=== PATIENT | female | born 1960 | race Caucasian/White ===

== ENCOUNTER 2022-04-24 23:47 | Inpatient (IN) | payer SELFPAY ==
--- NOTE | 2022-04-24 23:48 | XRR_ITS ---
PROCEDURE INFORMATION: Exam: XR Left Hip Exam date and time: 04/25/2022 12:09 AM Age: 61 years old Clinical indication: Injury or trauma; Fall; Blunt trauma (contusions or hematomas); Left; Hip; Additional info: Fall with left hip pain TECHNIQUE: Imaging protocol: Radiologic exam of the Left hip. Views: 2 or 3 views hip with pelvis when performed. COMPARISON: No relevant prior studies available. FINDINGS: Bones/joints: There is an acute comminuted intertrochanteric fracture of the proximal left femur. Soft tissues: Unremarkable. XR/XR hip LT 2-3V wo/w pel* [id number] IMPRESSION: Acute comminuted intertrochanteric fracture of the proximal left femur.
[2022-04-25] VITALS (28 sets, daily range): BP systolic 90–138; BP diastolic 50–80; PULSE 80–108; RESP 14–20; TEMP 36.3–37.3; O2SAT 90–100
--- NOTE | 2022-04-25 | SCC_ITS ---
Procedure done: Left intertrochanteric femur fracture cephalomedullary nail 155 seconds of fluoroscopic guidance, for a cumulative dose of 16.1 mGy, was provided to Dr. Menchaca by the radiology department. C-arm images of the LEFT hip were saved for the patient's permanent record. [facility]ENTER[facility]ern[facility]
--- NOTE | 2022-04-25 00:19 | CTR_ITS ---
PROCEDURE INFORMATION: Exam: CT Left Lower Extremity Without Contrast, Hip Exam date and time: 04/25/2022 12:46 AM Age: 61 years old Clinical indication: Injury or trauma; Fall; Blunt trauma; Hip; Left; Additional info: Fall left hip fracture TECHNIQUE: Imaging protocol: CT of the Left lower extremity without contrast was performed. Exam focused on the hip. Radiation optimization: All CT scans at this facility use at least one of these dose optimization techniques: automated exposure control; mA and/or kV adjustment per patient size (includes targeted exams where dose is matched to clinical indication); or iterative reconstruction. COMPARISON: CR (PELVIS, ) 04/25/2022 12:09 AM RADIATION DOSE METRICS: Total DLP (mGy-cm): 267.28 FINDINGS: Bones/joints: There is an acute comminuted intertrochanteric fracture of the proximal left femur. There is a moderate coxa vera deformity and anterior angulation present. Soft tissues: Normal. CT/CT hip LT wo con* [id number] IMPRESSION: Acute comminuted intertrochanteric fracture of the proximal left femur.
--- NOTE | 2022-04-25 00:19 | XRR_ITS ---
PROCEDURE INFORMATION: Exam: XR Left Femur Exam date and time: 04/25/2022 12:21 AM Age: 61 years old Clinical indication: Injury or trauma; Fall; Blunt trauma; Hip; Left; Additional info: Fall hip pain TECHNIQUE: Imaging protocol: Radiologic exam of the Left femur. Views: 2 views. COMPARISON: CR (PELVIS, ) 04/25/2022 12:09 AM FINDINGS: Bones/joints: There is an acute comminuted intertrochanteric fracture of the proximal left femur. Soft tissues: Unremarkable. XR/XR femur LT min 2V* [id number] IMPRESSION: Acute comminuted intertrochanteric fracture of the proximal left femur.
--- NOTE | 2022-04-25 00:19 | XRR_ITS ---
PROCEDURE INFORMATION: Exam: XR Left Knee Exam date and time: 04/25/2022 12:28 AM Age: 61 years old Clinical indication: Injury or trauma; Fall; Blunt trauma; Knee; Left; Additional info: Fall left lower extremity pain TECHNIQUE: Imaging protocol: Radiologic exam of the Left knee. Views: 3 views. COMPARISON: CR (LOW EXM, ) 04/25/2022 12:21 AM FINDINGS: Bones/joints: There is a moderate loss of joint space seen in the 3 compartments of the left knee compatible with moderate osteoarthritic changes. There are no acute osseous findings. Soft tissues: Normal. XR/XR knee LT 3V* [id number] IMPRESSION: There are no acute osseous findings.
--- NOTE | 2022-04-25 00:20 | XRR_ITS ---
PROCEDURE INFORMATION: Exam: XR Chest Exam date and time: 04/25/2022 12:32 AM Age: 61 years old Clinical indication: Injury or trauma; Fall; Blunt trauma (contusions or hematomas); Additional info: Hip fracture fall TECHNIQUE: Imaging protocol: Radiologic exam of the chest. Views: 1 view. COMPARISON: CT chest w con* [id number] 07/16/2018 11:05 AM FINDINGS: Lungs: There is a background of emphysema, bronchiectasis and pulmonary fibrosis. A partially calcified granuloma seen in the left mid hemithorax. There is asymmetric apical pleural thickening seen on the left. This finding is similar to that seen 07/16/2018. Pleural spaces: See Lungs finding. Heart/Mediastinum: Unremarkable. No cardiomegaly. Bones/joints: Unremarkable. XR/XR chest 1V portable [id number] IMPRESSION: 1. There is a background of emphysema, bronchiectasis and pulmonary fibrosis. 2. There is asymmetric apical pleural thickening seen on the left appearing stable compared to 07/16/2018. 3. Calcified granuloma seen in the left mid hemithorax.
--- NOTE | 2022-04-25 00:38 | ECG_ITS ---
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 Measurements Intervals [place] Rate: 101 P: 88 MD: 155 QRS: 72 QRSD: 82 T: 76 QT: 356 QTc: 463 Interpretive Statements SINUS TACHYCARDIA SEPTAL MYOCARDIAL INFARCTION , PROBABLY OLD [40+ ms Q WAVE IN V1/V2] Compared to ECG 07/18/2018 06:00:37 Myocardial infarct finding now present Sinus rhythm no longer present Electronically Signed On 04-25-2022 10:17:12 CDT by Mitch Olmedo M.D. [email or web address]
[2022-04-25 00:49] LABS: Basophils # 0.1 10^3/uL (0.0-0.1); Eosinophils # 0.3 10^3/uL (0.0-0.8); Eosinophils % 3.3 %; Hematocrit 46.3 % (37.0-47.0); Lymphocytes # 3.1 10^3/uL (0.8-4.8); Lymphocytes % 31.4 %; Mean Corpuscular HGB Conc 34.6 g/dL (30.0-36.0); Mean Corpuscular Hemoglobin 32.3 pg (28.0-34.0); Mean Corpuscular Volume 93.3 fl (81-99); Mean Platelet Volume 11.3 fL (7.4-10.4); Monocytes # 0.9 10^3/uL (0.2-0.9); Monocytes % 9.1 %; Neutrophils # 5.32 10^3/uL (1.8-7.7); Neutrophils % 54.7 %; Nucleated Red Blood Cells % 0 %; Platelet Count 243 10^3/cmm (130-400); Red Blood Count 4.96 10^6/uL (4.1-5.3); Red Cell Distribution Width 13.2 % (12.1-15.1); White Blood Count 9.7 10^3/uL (4.0-10.0)
[2022-04-25 00:55] LABS: INR 0.95 (0.8-1.2)
[2022-04-25 00:56] LABS: Partial Thromboplastin Time 27.5 SECONDS (23.9-36.7)
[2022-04-25 01:04] LABS: Alanine Aminotransferase 12 U/L (0-33); Albumin Level 4.1 g/dL (3.5-5.2); Alcohol Level 68 mg/dL (0-10); Alkaline Phosphatase 84 U/L (35-105); Anion Gap 16.3 (5-19); Aspartate Amino Transferase 17 U/L (0-32); Blood Urea Nitrogen 6 mg/dL (8-23); Calcium 9.1 mg/dL (8.5-10.5); Carbon Dioxide 28 mmol/L (22-29); Chloride 94 mmol/L (98-107); Globulin 2.8 g/dL (1.3-4.6); Glomerular Filtration Rate 125.4 mL/min (90-130); Glucose 107 mg/dL (65-115); Osmolality Calculated 278 mOsm/kg (285-295); Potassium 3.3 mmol/L (3.5-5.1); Sodium 135 mmol/L (136-145); Total Bilirubin 0.2 mg/dL (0.15-1.2); Total Protein 6.9 g/dL (6.6-8.7)
[2022-04-25] MEDS: sodium chloride 0.9% 1,000 ML 999 ML IV (01:04)
[2022-04-25] MEDS: morphine 4 mg/mL SDV 1 mL IVP (01:05)
[2022-04-25] MEDS: ondansetron 2 mg/ML SDV 2 mL 4 MG IVP ×2 (01:05→21:41)
[2022-04-25] MEDS: fentaNYL 50 mcg/mL INJ 2mL IVP (01:50)
--- NOTE | 2022-04-25 02:07 | ED_ITS ---
HPI - Fall General: Chief Complaint: Fall Stated Complaint: FALL/LEFT HIP PAIN Time Seen by Provider: 04/24/22 23:58 Source: patient and family History of Present Illness: 61-year-old female with a history of coronary disease. She is a smoker. She fell at home, and has left hip pain. She did not hit her head. There is deformity of the left lower extremity. She presents by EMS. complaint: fall Onset (ago): minute(s) Fall from: standing Fall witnessed: yes, by family Place fall occurred: home Loss of consciousness: None Prolonged down time: no Symptoms prior to fall: none Context: tripped/slipped Location of injury - extremities: Left: thigh Quality: aching Associated symptoms-after fall: Reports difficulty walking; Denies abdominal pain, chest pain, confusion, headache(s), lightheadedness or short of breath Review of Systems Const: Denies: fever(s) Eyes: Denies: change in vision Card: Denies: chest pain or lightheadedness Resp: Denies: dyspnea, productive cough or non-productive cough GI: Denies: abdominal pain : Denies: flank pain Musc: Denies: back pain Neuro: Reports: difficulty walking; Denies: headache(s) or confusion PFSH ED PFSH: Medical History CAD (coronary artery disease) Surgical History Hx of appendectomy Family History Other Cancer Social History (Updated 04/25/22 @ 01:28 by Kameron Woo MD) Smoking and tobacco status: smoker, details unknown Physical Exam Const: GENERAL APPEARANCE: cooperative and frail appearing; not ill appearing HENMT: COMMON NORMALS: normocephalic, atraumatic and Normal external nose present HEAD & SCALP: normocephalic and atraumatic FACE & SINUS: normal facial exam and face symmetric NOSE: Normal external nose present Eye: COMMON NORMALS: Equal, round and reactive pupils present and EOMs intact bilaterally PUPIL: Yes Equal, round and reactive pupils present Neck/C-Spine: GENERAL: Yes trachea midline CERVICAL SPINE: Yes cervical ROM normal and No Cervical spine tenderness Chest: CHEST: Yes Symmetrical chest wall rise Resp: COMMON NORMALS: normal respiratory effort, No use of accessory muscles and clear to auscultation bilaterally AUSCULTATION: clear to auscultation bilaterally Cardio: COMMON NORMALS: regular rhythm RATE: tachycardic RHYTHM: regular rhythm GI: COMMON NORMALS: Normal to inspection, nondistended, normoactive bowel sounds present and Soft to palpation PALPATION: Yes Soft to palpation Extremity: NARRATIVE EXTREMITY EXAM: Examination left lower extremity reveals shortening and external rotation. There is tenderness over the left hip Neuro: MARYLU COMA SCALE: document GCS findings Marylu coma scale eye opening: Spontaneous [place] coma scale verbal response: Orientated Marylu coma scale motor response: Obey commands [place] coma scale total score: 15 Psych: COMMON NORMALS: mental status grossly normal and cooperative Skin: COMMON NORMALS: no wounds Course Vital Signs: Vital signs: Vital Signs Temperature 97.5 F L 04/25/22 00:03 Pulse Rate 80 04/25/22 01:07 Respiratory Rate 18 04/25/22 01:50 Blood Pressure 124/70 04/25/22 01:07 Pulse Oximetry 94 04/25/22 01:07 Oxygen Delivery Me thod 04/25/22 01:07 Oxygen Flow Rate 3 04/25/22 01:07 MDM - Fall Medical Decision Making Patient has significant shortening and rotation of the left hip. There is an intertrochanteric fracture. X-rays of the knee are negative. No pelvic fracture. Hemoglobin is 16. Potassium is 3.3. Chest x-ray shows calcified granuloma in the left mid hemithorax with emphysema changes her alcohol level is 68. She is awake alert and talking. She is oriented. She will be admitted. Orthopedics will consult. Lab Data : 04/24/22 23:56 04/24/22 23:56 Radiology Impressions Hip/Pelvis X-Ray 04/24/22 23:48 IMPRESSION: Acute comminuted intertrochanteric fracture of the proximal left femur. Femur X-Ray 04/25/22 00:19 IMPRESSION: Acute comminuted intertrochanteric fracture of the proximal left femur. Hip CT 04/25/22 00:19 IMPRESSION: Acute comminuted intertrochanteric fracture of the proximal left femur. Knee X-Ray 04/25/22 00:19 IMPRESSION: There are no acute osseous findings. Chest X-Ray 04/25/22 00:20 IMPRESSION: 1. There is a background of emphysema, bronchiectasis and pulmonary fibrosis. 2. There is asymmetric apical pleural thickening seen on the left appearing stable compared to 07/16/2018. 3. Calcified granuloma seen in the left mid hemithorax. Laboratory Results WBC 9.7 10^3/uL (4.0-10.0) 04/24/22 23:56 RBC 4.96 10^6/uL (4.1-5.3) 04/24/22 23:56 Hgb 16.0 g/dL (11.5-15.3) H 04/24/22 23:56 Hct 46.3 % (37.0-47.0) 04/24/22 23:56 MCV 93.3 fl (81-99) 04/24/22 23:56 MCH 32.3 pg (28.0-34.0) 04/24/22 23:56 MCHC 34.6 g/dL (30.0-36.0) 04/24/22 23:56 RDW 13.2 % (12.1-15.1) 04/24/22 23:56 Plt Count 243 10^3/cmm (130-400) 04/24/22 23:56 MPV 11.3 fL (7.4-10.4) H 04/24/22 23:56 Neut % (Auto) 54.7 % 04/24/22 23:56 Lymph % (Auto) 31.4 % 04/24/22 23:56 [place] % (Auto) 9.1 % 04/24/22 23:56 Eos % (Auto) 3.3 % 04/24/22 23:56 Baso % (Auto) 1.0 % 04/24/22 23:56 Neut # (Auto) 5.32 10^3/uL (1.8-7.7) 04/24/22 23:56 Lymph # (Auto) 3.1 10^3/uL (0.8-4.8) 04/24/22 23:56 [place] # (Auto) 0.9 10^3/uL (0.2-0.9) 04/24/22 23:56 Eos # (Auto) 0.3 10^3/uL (0.0-0.8) 04/24/22 23:56 Baso # (Auto) 0.1 10^3/uL (0.0-0.1) 04/24/22 23:56 Nucleated RBC % (auto) 0 % 04/24/22 23:56 Nucleated RBCs # 0.0 /100WBC 04/24/22 23:56 PT 13.00 SECONDS (12.1-14.9) 04/24/22 23:56 INR 0.95 (0.8-1.2) 04/24/22 23:56 APTT 27.5 SECONDS (23.9-36.7) 04/24/22 23:56 Sodium 135 mmol/L (136-145) L 04/24/22 23:56 Potassium 3.3 mmol/L (3.5-5.1) L 04/24/22 23:56 Chloride 94 mmol/L (98-107) L 04/24/22 23:56 Carbon Dioxide 28 mmol/L (22-29) 04/24/22 23:56 Anion Gap 16.3 (5-19) 04/24/22 23:56 BUN 6 mg/dL (8-23) L 04/24/22 23:56 Creatinine 0.5 mg/dL (0.5-0.9) 04/24/22 23:56 GFR Calculation 125.4 mL/min (90-130) 04/24/22 23:56 Glucose 107 mg/dL (65-115) 04/24/22 23:56 Calculated Osmolality 278 mOsm/kg (285-295) L 04/24/22 23:56 Calcium 9.1 mg/dL (8.5-10.5) 04/24/22 23:56 Total Bilirubin 0.2 mg/dL (0.15-1.2) 04/24/22 23:56 AST 17 U/L (0-32) 04/24/22 23:56 ALT 12 U/L (0-33) 04/24/22 23:56 Alkaline Phosphatase 84 U/L (35-105) 04/24/22 23:56 Total Protein 6.9 g/dL (6.6-8.7) 04/24/22 23:56 Albumin 4.1 g/dL (3.5-5.2) 04/24/22 23:56 Globulin 2.8 g/dL (1.3-4.6) 04/24/22 23:56 Ethyl Alcohol 68 mg/dL (0-10) H 04/24/22 23:56 Discharge Plan Discharge Patient Disposition: Admitted As Inpatient Clinical Impression: Closed fracture of left hip Condition: Stable Referrals: Amber Allen FNP [Primary Care Provider] - Coding Level of Care Code ED Senior Compliance Analyst for [facility]
[2022-04-25 02:13] LABS: Add Urine Microscopic? NO; Charge for UA Resulting for Rev
--- NOTE | 2022-04-25 02:28 | P.HP_ITS ---
Providers/Chief Complaint Admitting Physician: Kameron Woo Primary Care Provider: Amber Allen Chief Complaint: FALL/LEFT HIP PAIN History of Present Illness Pleasant 61-year-old lady with history of CAD, prior stenting, smoking addiction was walking her dog who suddenly darted to t[place] after something causing her to lose her footing falling to the ground. Subsequently with left hip pain. In ER noted acute comminuted intertrochanteric fracture of proximal left femur. She states she smokes about a pack a day and that she knows she needs to quit. She drinks about 1-2 drinks per day. She otherwise has been at baseline state of health. She takes aspirin. She denies having any chest pain or pressure recently. In ER she started on 3 L nasal cannula oxygen, although appears to be doing well on about 1 L as well maintaining saturations in low 90s. Reports not previously needing oxygen supplementation. Has not been formally diagnosed with any lung condition. Review of Systems Const: Denies: fever(s), chills, body aches or malaise Eyes: Denies: change in vision, eye discomfort or eye redness ENMT: Denies: throat pain, oral sores or ear or mastoid pain Card: Denies: chest pain, edema, pre-syncope or dyspnea on exertion Resp: Denies: dyspnea, productive cough, change in phlegm color or hemoptysis GI: Denies: abdominal pain, nausea, vomiting, diarrhea, constipation, hematochezia or melena : Denies: flank pain, urinary frequency or hematuria Musc: Reports: joint pain; Denies: back pain, joint swelling or joint redness Skin/Breast: Denies: rash or new lesions Neuro: Denies: headache(s), numbness in extremities, weakness in extremities, dizziness, confusion or seizure-like activity Endo: Denies: polyuria or polydipsia Jef/Lymph: Denies: easy bleeding or tender lymph nodes All/Imm: Denies: urticaria or tongue swelling Medications/Allergies Allergies Allergy/AdvReac Type Severity Reaction Status Date / Time No Known Allergies Allergy Verified 04/25/22 00:10 PFSH Acute PFSH: Medical History CAD (coronary artery disease) Surgical History Hx of appendectomy Stented coronary artery Family History Other Cancer Social History Smoking and tobacco status: current every day smoker cigarettes Packs smoked per day: 1 Alcohol intake: current Alcohol intake frequency: 0-2 Drinks per Day Substance/Drug Use: never Lives independently: Yes Household members: spouse Marital status: Vitals/I&O/Wt Last Vital Signs Temp 97.5 F L 04/25/22 00:03 Pulse 105 H 04/25/22 02:20 Resp 15 04/25/22 02:20 BP 106/59 04/25/22 02:20 Pulse Ox 90 04/25/22 02:20 O2 Del Method 04/25/22 02:07 O2 Flow Rate 5 04/25/22 02:07 Weight last 48 hrs Weight 49.895 kg Physical Exam Const: COMMON NORMALS: patient oriented x3 and alert GENERAL APPEARANCE: cooperative ORIENTATION/CONSCIOUSNESS: Yes awake HENMT: COMMON NORMALS: oropharynx normal Neck/C-Spine: COMMON NORMALS: no JVD Resp: COMMON NORMALS: normal respiratory effort and clear to auscultation bilaterally AUSCULTATION: clear to auscultation bilaterally Cardio: COMMON NORMALS: no JVD, regular rhythm, S1 normal heart sound present, S2 normal heart sound present and No murmurs present (Cardio) RHYTHM: regular rhythm HEART SOUNDS: S1 normal heart sound present and S2 normal heart sound present GI: COMMON NORMALS: Normal to inspection, nondistended, normoactive bowel sounds present, Soft to palpation and non-tender PALPATION: Yes Soft to palpation Extremity: COMMON NORMALS: no joint enlargement and no pedal edema OTHER: Everted, shortened LLE Neuro: COMMON NORMALS: patient oriented x3 and moves all extremities SENSORIUM/ORIENTATION: Yes alert Skin: COMMON NORMALS: no rashes or lesions noted GENERAL SKIN EXAM: no rashes or lesions noted Urinary Catheter Management: Scott: Cath Placed During This Visit: yes Urinary Catheter Date of Insertion: 04/25/22 Urinary Catheter Time of Insertion: 02:06 Data : 04/24/22 23:56 04/24/22 23:56 A&P Assessment and plan (1) Closed comminuted fracture of left hip: After mechanical fall after lost her footing and fell being pulled by her dog. She would like to pursue surgical intervention to repair the fracture so that she can mobilize as soon as possible. Carries slightly higher cardiac risk due to history of CAD, stenting, current smoking, appears to also have some hypoxia, undiagnosed COPD likely with emphysema noted on chest x-ray. She is not aware of having previously been diagnosed with lung disease. With noted sinus tachycardia, possibly secondary to fracture, pain, although will assess D-dimer, consider assessment for PE. She otherwise has not had any chest pain or pressure. EKG obtained appears nonischemic. Monitor for any changes in symptoms. Collect UA. Otherwise to be assessed by orthopedics, keep NPO. SCDs, 1 dose of heparin VTE prophylaxis, hold further until after surgery. (2) Hypoxia: She denies history of lung disease diagnosis, however, noted to have emphysema on chest x-ray. Likely has undiagnosed COPD. Additionally noted sinus tachyca rdia. Will obtain D-dimer, if abnormal consider additional evaluation for possibility of PE, although otherwise should be less likely. After recovery would benefit from PFT. (3) Smoking addiction: Discussed smoking cessation with her for about 4 minutes. She benefit from quitting given history of CAD, and now appears to have undiagnosed lung disease. Encourage cessation. She knows she would benefit from quitting. Nicotine replacement. Plan EtOH intake: EtOH level 68 mg/dL. She states she has 1-2 beers daily. Denies any history of withdrawal. Monitor. Thiamine, folic acid, multivitamin. Mild hypokalemia: Replace CAD, history of NSTEMI, coronary stenting Noted symmetrical apical pleural thickening, appearing stable since 2019, follow-up outpatient. Calcified granuloma in the left mid hemithorax: Follow-up outpatient. Attestations Medical Necessity Statement*: Admission of over 2 midnights anticipated for as sessment when of left hip fracture in a lady with underlying CAD, also with undiagnosed lung disease with hypoxia, smoking, daily EtOH. Coding Level of Care Code Acute Rust Proofer for [facility] Diagnoses Closed comminuted fracture of left hip S72.092A Hypoxia R09.02 Smoking addiction F17.200
[2022-04-25 02:49] LABS: Urine Appearance Clear (CLEAR); Urine Color Yellow (Yellow); pH Urine 6 (5-7)
[2022-04-25 02:50] LABS: Bilirubin Urine Neg (Negative); Blood Urine Neg (Negative); Glucose Urine UA Norm (Normal); Ketones Urine Negative (Negative); Leukocyte Esterase Urine Negative (Negative); Nitrate Urine Negative (Negative); Protein Urine Neg (Negative); Urobilinogen Urine Neg (Negative)
[2022-04-25 03:02] LABS: D Dimer 1.68 ug/mIFEU (0-0.59)
--- NOTE | 2022-04-25 03:30 | CTR_ITS ---
PROCEDURE INFORMATION: Exam: CTA Chest With Contrast Exam date and time: 04/25/2022 9:56 AM Age: 61 years old Clinical indication: Abnormal findings; Other: Elevated ddimer; Prior surgery; Surgery type: Stents; Additional info: Hypoxia, sinus tach TECHNIQUE: Imaging protocol: Computed tomographic angiography of the chest with contrast. 3D rendering (Not supervised by radiologist): MIP and/or 3D reconstructed images were created by the technologist. Radiation optimization: All CT scans at this facility use at least one of these dose optimization techniques: automated exposure control; mA and/or kV adjustment per patient size (includes targeted exams where dose is matched to clinical indication); or iterative reconstruction. Contrast material: OMNI 350; Contrast volume: 58 ml; Contrast route: INTRAVENOUS (IV); COMPARISON: CT chest w con* [id number] 07/16/2018 11:05 AM RADIATION DOSE METRICS: Total DLP (mGy-cm): 155.35 FINDINGS: Pulmonary arteries: No central or segmental filling pulmonary artery filling defects are identified. Aorta: The aorta is normal in course and caliber. Lungs: Severe emphysematous disease. Peripheral calcified pulmonary scarring again noted. Peribronchial thickening noted. Bronchial filling defects in the right lower lobe noted. No significant airspace consolidation concerning for pneumonia. Resolution of multiple previously noted spiculated nodules. Pleural spaces: Prominent calcified scarring/pleural thickening in the left upper lobe, similar to prior exam in 2018. No pleural effusions. No pneumothorax. Heart: Coronary artery calcifications noted. Lymph nodes: Calcified left hilar lymph nodes identified. Adrenal glands: Possible left adrenal gland hypertrophy again noted but overall poorly visualized on this exam. Stomach and bowel: Dense ingested material noted within the partially visualized stomach. Bones/joints: Unremarkable. Soft tissues: Unremarkable. CT/CT angio chest PE protcl [id number] IMPRESSION: 1. No pulmonary embolism identified. 2. Significant emphysematous disease again noted with pulmonary scarring.
[2022-04-25] MEDS: morphine 4 mg/mL SDV 1 mL 2 MG IVP ×2 (05:54→21:38)
[2022-04-25] MEDS: nicotine 21 mg Patch 1 PATCH TRANSDERMA (06:14)
[2022-04-25] MEDS: heparin 5,000 unit/mL INJ 1 mL 5000 UNIT SUBCUT (06:15)
[2022-04-25] MEDS: potassium chloride ER 20 mEq Tablet PO (06:15)
[2022-04-25] MEDS: HYDROmorphone 1 mg/mL INJ 1 mL 0.2 MG IVP ×2 (07:54→09:48)
--- NOTE | 2022-04-25 07:56 | P.CONIM_ITS ---
Providers/Reason For Consult Consulting Physician/Specialty*: Nic Menchaca DO/orthopedic surgery Reason for Consult*: Left intertrochanteric femur fracture Requesting Physician: Dr. Araiza Attending Physician: Kameron Woo Primary Care Provider: Amber Allen History of Present Illness History of Present Illness Carola Reynoso is a 61 year old female sustained a ground-level fall while walking her dog. Patient is a community ambulator at baseline and does not utilize a walker. Denies any prior hip pain. Patient is a chronic smoker. Is not on nasal cannula O2 at home. She has a history of coronary artery disease and stenting. She takes an aspirin daily. She has been n.p.o. since last night. She denies any fevers or chills nausea or vomiting or chest pain. Patient was brought to the emergency department found to have a left intertrochanteric femur fracture and orthopedic surgery team was consulted and hospitalist team is admitted patient. Review of Systems General: Reports: 10 or more systems reviewed and unremarkable except in HPI and below Const: Denies: fever(s) or chills Card: Denies: chest pain Resp: Denies: dyspnea GI: Denies: abdominal pain, nausea or vomiting Musc: Reports: extremity pain and joint pain Neuro: Denies: numbness in extremities Medications/Allergies Allergies Allergy/AdvReac Type Severity Reaction Status Date / Time No Known Allergies Allergy Verified 04/25/22 00:10 Current Medications Generic Name Dose Route Start Last Admin Trade Name Freq PRN Reason Stop Dose Admin Morphine Sulfate 2 mg 04/25/22 04:51 04/25/22 05:54 Morphine 4 Mg/Ml Sdv 1 Ml IVP 2 mg Q4H PRN Administration SEVERE PAIN Nicotine 1 patch 04/25/22 04:51 04/25/22 06:14 Nicotine 21 Mg Patch TRANSDERMA 1 patch Q24H JEANNA Administration PFSH Acute 2 PFSH: Medical History (Updated 04/25/22 @ 08:23 by Nic Menchaca DO) CAD (coronary artery disease) Fracture, intertrochanteric, left femur Surgical History Hx of appendectomy Stented coronary artery Family History Other Cancer Social History Smoking and tobacco status: current every day smoker cigarettes Packs smoked per day: 1 Alcohol intake: current Alcohol intake frequency: 0-2 Drinks per Day Substance/Drug Use: never Lives independently: Yes Household members: spouse Marital status: Vitals/I&O/Wt Last Vital Signs Temp 98.2 F 04/25/22 07:27 Pulse 105 H 04/25/22 07:27 Resp 18 04/25/22 07:54 BP 118/71 04/25/22 07:27 Pulse Ox 91 04/25/22 07:54 O2 Del Method 04/25/22 07:27 O2 Flow Rate 5 04/25/22 07:27 Weight last 48 hrs Weight 110 lb Physical Exam Narrative: Orthopedic examination: Examination of patient's left lower extremity demonstrates shortened and externally rotated. Tenderness to palpation of the left hip. Positive logroll. Unable to perform Stinchfield secondary to pain and discomfort. Sensation int act to light touch distally to the left lower extremity at the SPN/DPN/tibial/saphenous/sural nerve distribution. Distal pulses are palpable. Patient is able to wiggle toes as well as plantarflex and dorsiflex ankle. No tenderness to palpation of the left knee foot or ankle. No pain with pelvic compression or signs of instability. No tenderness to palpation of the right hip knee ankle or foot. Distal pulses palpable able to wiggle toes as well as plantarflex and dorsiflex ankle. Negative logroll to the right leg. Examination of the bilateral upper extremity shoulders elbows wrists and hands show no tenderness to palpation or deformity and normal range of motion without pain or discomfort.. Const: COMMON NORMALS: no acute distress and patient oriented x3 HENMT: COMMON NORMALS: normocephalic and atraumatic HEAD & SCALP: normocephalic and atraumatic Resp: COMMON NORMALS: normal respiratory effort (She is requiring nasal cannula 5 L at this time but denies shortness of timoteo) Cardio: COMMON NORMALS: Peripheral pulses 2+ throughout PERIPHERAL PULSES: Peripheral pulses 2+ throughout Neuro: COMMON NORMALS: patient oriented x3 Urinary Catheter Management: Scott: Cath Placed During This Visit: yes Reason for Continuing Indwelling Catheter: Required Immobilization for Trauma or Surgery or Anesthesia Urinary Catheter Date of Insertion: 04/25/22 Urinary Catheter Time of Insertion: 02:06 Data : 04/24/22 23:56 04/24/22 23:56 Xray Ortho: My impression: Comminuted fracture of the left intertrochanteric femur with displacement. No extension into the subtrochanteric region. Pelvis hip femur and knee reviewed and show no other acute fracture dislocation. Radiologist's impression: IMPRESSION: Acute comminuted intertrochanteric fracture of the proximal left femur. CT scan showsIMPRESSION: Acute comminuted intertrochanteric fracture of the proximal left femur. A&P Assessment and plan (1) Fracture, intertrochanteric, left femur: (2) Smoking addiction: Plan N.p.o. Nonweightbearing left lower extremity Preoperative clearance and medical optimization per primary team?hospitalist Due to patient requiring 5 L nasal cannula spoke with hospitalist and they will order a CTA of the chest to rule out any PE prior to surgical intervention. If this is cleared patient per the hospitalist will be medically optimized for surgical intervention today Ice as needed for pain Pain control Hold a.m. anticoagulation Plan for OR today for left intertrochanteric femur fracture cephalomedullary nail Detail out the risk benefits complications alternatives of surgical and nonsurgical treatment options with patient. Her risks include but are not limited to make it better, make it worse, blood clot, heart attack, stroke, on the table, infection, malunion, nonunion, failed hardware. Understanding these risks she agrees to proceed with surgical intervention I do feel as though the benefits of early mobilization and pain control outweigh the risk with surgery. She understands and agrees to proceed with surgical intervention. All questions have been answered at this time. Obtain consent Coding Level of Care Code Acute Storeroom Attendant for Auryg Fwd Diagnoses Fracture, intertrochanteric, left femur S72.142A Smoking addiction F17.200 Time Spent (min) 45
[2022-04-25 08:36] LABS: Adenovirus Not Detected (NOT DETECT); Chlamydia Pneumoniae Not Detected (NOT DETECT); Coronavirus 229E,HKU1,NL63,OC4 Not Detected (NOT DETECT); Human Metapneumovirus Not Detected (NOT DETECT); Human Rhinovirus/Enterovirus Not Detected (NOT DETECT); Influenza A Not Detected (NOT DETECT); Influenza A H1 Not Detected (NOT DETECT); Influenza A H1-2009 Not Detected (NOT DETECT); Influenza A H3 Not Detected (NOT DETECT); Influenza B Not Detected (NOT DETECT); Mycoplasma Pneumoniae Not Detected (NOT DETECT); Parainfluenza Virus Type 1 Not Detected (NOT DETECT); Parainfluenza Virus Type 2 Not Detected (NOT DETECT); Parainfluenza Virus Type 3 Not Detected (NOT DETECT); Parainfluenza Virus Type 4 Not Detected (NOT DETECT); Respiratory Syncytial Virus A Not Detected (NOT DETECT); Respiratory Syncytial Virus B Not Detected (NOT DETECT); SARS-COV-2 Not Detected (NOT DETECT)
[2022-04-25] MEDS: iohexol 350 mg/mL 100 mL Btl IV (10:05)
[2022-04-25] MEDS: sodium chloride 0.9% 1,000 ML 30 ML IV (10:34)
--- NOTE | 2022-04-25 10:59 | W.PM.OPSUD ---
Surgery/Procedure H&P Update DATE OF PROCEDURE: April 25, 2022 DATE H&P PERFORMED: 04/25/22 CHANGES TO PREVIOUS DOCUMENTATION: None, patient had CTA of the chest showing no pulmonary embolism as result patient stable from hospitalist team to proceed with surgical intervention today. Patient's been n.p.o. and medically optimized for surgery. PREOP DIAGNOSIS: Displaced left intertrochanteric femur fracture PRIMARY INDICATION FOR PROCEDURE: Displaced and comminuted left intertrochanteric femur fracture PLANNED PROCEDURE: Operation Date: 04/25/22 10:30 Proposed Procedures p Trochanteric Femoral Nail(Left) - Nic Menchaca DO
[2022-04-25] MEDS: acetaminophen 1,000 MG/100 ML PIGGYBACK 400 MG IV (11:01)
--- NOTE | 2022-04-25 11:10 | P.ANESASSM_ITS ---
Pre-Anesthetic Assessment Height/Weight: Weight 49.895 kg Temp Pulse Resp BP Pulse Ox O2 Del Method O2 Flow Rate 98.2 F 105 H 18 118/71 91 5 04/25/22 07:27 04/25/22 07:27 04/25/22 07:54 04/25/22 07:27 04/25/22 07:54 04/25/22 07:27 04/25/22 07:27 Preop Diagnosis: Displaced left intertrochanteric femur fracture Operation Date: 04/25/22 10:30 Proposed Procedures p Trochanteric Femoral Nail(Left) - Nic Menchaca DO Familial anesthetic complications: none Was Beta Ag taken within 24 hours: N/A Was Clonidine taken within 24 hours: N/A Social Alcohol (daily) and Tobacco Exam alert, oriented x 3 and regular rate & rhythm Airway Submandibular: within normal limits Cervical ROM: within normal limits Mallampati: Class II Dentition: chipped Pulmonary Chronic Obstructive Pulmonary Disease CV/HEM Coronary Artery Disease (stent) Anesthetic Plan ASA status: 3 Anesthesia: Regional (specify below) (SAB) Medications/Allergies Allergies Allergy/AdvReac Type Severity Reaction Status Date / Time No Known Allergies Allergy Verified 04/25/22 00:10 Current Medications Generic Name Dose Route Start Last Admin Trade Name Freq PRN Reason Stop Dose Admin Sodium Chloride 1,000 mls @ 30 mls/hr 04/25/22 10:15 04/25/22 10:34 Sodium Chloride 0.9% IV 04/26/22 10:14 30 mls/hr .Q24H JEANNA Administration Morphine Sulfate 2 mg 04/25/22 04:51 04/25/22 05:54 Morphine 4 Mg/Ml Sdv 1 Ml IVP 2 mg Q4H PRN Administration SEVERE PAIN Nicotine 1 patch 04/25/22 04:51 04/25/22 06:14 Nicotine 21 Mg Patch TRANSDERMA 1 patch Q24H JEANNA Administration PFSH Anesthesia Medical History (Updated 04/25/22 @ 08:23 by Nic Menchaca DO) CAD (coronary artery disease) Fracture, intertrochanteric, left femur Surgical History Hx of appendectomy Stented coronary artery Family History Other Cancer Social History Smoking and tobacco status: current every day smoker cigarettes Packs smoked per day: 1 Alcohol intake: current Alcohol intake frequency: 0-2 Drinks per Day Substance/Drug Use: never Lives independently: Yes Household members: spouse Marital status: Data Anesthesia : 04/24/22 23:56 04/24/22 23:56 Short CBC 04/24/22 Range/Units 23:56 WBC 9.7 (4.0-10.0) 10^3/uL Hgb 16.0 H (11.5-15.3) g/dL Hct 46.3 (37.0-47.0) % MCV 93.3 (81-99) fl Plt Count 243 (130-400) 10^3/cmm Neut % (Auto) 54.7 % Neut # (Auto) 5.32 (1.8-7.7) 10^3/uL BMP 04/24/22 23:56 Sodium 135 L Potassium 3.3 L Chloride 94 L Carbon Dioxide 28 BUN 6 L Creatinine 0.5 Glucose 107 Calcium 9.1 Liver Function 04/24/22 Range/Units 23:56 Total Bilirubin 0.2 (0.15-1.2) mg/dL AST 17 (0-32) U/L ALT 12 (0-33) U/L Alkaline Phosphatase 84 (35-105) U/L Albumin 4.1 (3.5-5.2) g/dL Urine 04/25/22 Range/Units 02:06 Urine Color Yellow (Yellow) Urine Appearance Clear (CLEAR) Urine pH 6 (5-7) Ur Specific [place] 1.020 (1.005-1.030) Urine Protein Neg (Negative) Urine Glucose (UA) Norm (Normal) Urine Ketones Negative (Negative) Urine Nitrate Negative (Negative) Urine Bilirubin Neg (Negative) Ur Leukocyte Esterase Negative (Negative) COVID Results 04/25/22 06:25 Coronavirus 229E (PCR) Not detected SARS-CoV-2 (PCR) Not detected Coags 04/24/22 04/24/22 23:56 23:56 PT 13.00 INR 0.95 APTT 27.5 D-Dimer 1.68 H Cardiac Studies: No Data to Display
[2022-04-25] MEDS: ceFAZolin 2,000 MG in sodium chloride 0.9% (plus) 50 ML 100 MG IV ×2 (11:56→19:57)
[2022-04-25] MEDS: tranexamic acid 1,000 mg/10mL SDV 1000 MG IV (11:56)
--- NOTE | 2022-04-25 12:13 | P.MISC_ITS ---
Miscellaneous Note Note: 61-y old female with past medical history of coronary artery disease status post PCI , chronic smoker about a pack a day, was brought in after she experienced fall at home while walking her dog. She was admitted for the management of acute comminuted intertrochanteric fracture of proximal left f emur. CTA chest was done: PE was ruled out ,as patient was requiring 3 to 5 L new oxygen while in hospital, she does not use oxygen at home, possible desaturation may be attributed to opioid pain medications, though she likely have underlying COPD given her longstanding chronic smoking history. CTA chest has shown significant emphysematous disease. Currently orthopedic is on board. Patient will likely require home oxygen evaluation prior to discharge.
--- NOTE | 2022-04-25 12:59 | XR_ITS ---
WS: [id number] C-ARM RADIOGRAPHS LEFT HIP; 4 IMAGES HISTORY: OR PICS COMPARISON: 04/25/2022 Intraoperative imaging during gamma nail placement in proximal femoral larissa placement. Impacted intert rochanteric fracture has been reduced now in good position and alignment. XR/XR hip LT 1V wo/[place] [id number] IMPRESSION: Intraoperative imaging during ORIF LEFT hip.
--- NOTE | 2022-04-25 13:02 | XRR_ITS ---
PROCEDURE INFORMATION: Exam: XR Left Hip Exam date and time: 04/25/2022 1:15 PM Age: 61 years old Clinical indication: Hip pain; Left hip; Prior surgery; Surgery date: Post-operative (0-2 days); Surgery type: Orif; Additional info: Postop L it orif cmn, ap pelvis, ap left hip and crosstable lateral left hip TECHNIQUE: Imaging protocol: Radiologic exam of the Left hip. Views: 2 or 3 views hip with pelvis when performed. COMPARISON: OT XR hip LT 1V wo/w pel [id number] 04/25/2022 11:51 AM FINDINGS: Bones/joints: Status post ORIF proximal left femur stabilizing a partially visualized intertrochanteric fracture. Hardware appears intact with no obvious complication. Intertrochanteric fractures are in grossly satisfactory alignment. Soft tissues: There is edema and emphysema in the soft tissues surrounding the proximal left femur. XR/XR hip LT 2-3V wo/w pel* [id number] IMPRESSION: 1. Status post ORIF proximal left femur stabilizing a partially visualized intertrochanteric fracture. Hardware appears intact with no obvious complication. Intertrochanteric fractures are in grossly satisfactory alignment. 2. There is edema and emphysema in the soft tissues surrounding the proximal left femur. Emphysema may be postoperative in nature. Infection/abscess cannot be excluded.
--- NOTE | 2022-04-25 13:10 | P.OP_ITS ---
Brief Operative Note Date of procedure: 04/25/22 Pre-op diagnosis: Comminuted left intertrochanteric femur fracture Post-op diagnosis: same Procedure Done: Left hip intertrochanteric femur fracture cephalomedullary nail Surgeon: Nic Menchaca Estimated blood loss (mL): 250 Complications: None Post-op Plan: Patient to recover in PACU. Dressings on in place clean dry and intact. Will be given appropriate discharge instructions as well as pain medication DVT prophylaxis postoperatively. Will return to the floor. Receive DVT prophylaxis and pain control and postoperative antibiotics. We will work with PT/OT and may be weightbearing as tolerated to the left lower extremity. Condition: stable Disposition: floor Coding Level of Care Code Acute Business Data Analyst for Sherrie Hayward
--- NOTE | 2022-04-25 13:11 | PM.PACU ---
PACU note Narrative: Patient seen evaluated in PACU recovering well. Patient received spinal anesthesia unable to assess motor and sensory. Distal pulses are palpable. Patient will return to the floor. Dressings on in place and clean dry and intact. Exam: awake (See narrative for detailed exam) Disposition: back to floor
--- NOTE | 2022-04-25 13:12 | PM.OP ---
Operative Report Date of procedure: April 25, 2022 Pre-op diagnosis: Preop Diagnosis Displaced left intertrochanteric femur fracture Post-op diagnosis: Same Procedure done: Left intertrochanteric femur fracture cephalomedullary nail Implants: [place] gamma nail 125 degrees 11 x 180 mm Lag screw 10.5 mm x 95 mm Distal locking screw 5 mm x 32.5 mm Surgeon: Nic Menchaca DO Estimated blood loss: 250 mL None IV fluids: See anesthesia record Complications: None Findings: See operative report narrative Condition: stable Disposition: floor Brief History: Carola is a 61-year-old female who sustained a ground-level fall while walking her dog last night. She had immediately pain to the left hip and inability to bear weight. She was brought to the emergency department and found to have a comminuted and displaced left intertrochanteric femur fracture. She was subsequently admitted by the hospitalist team for medical management and surgical optimization and orthopedic surgery team was consulted. Saw and evaluated patient this morning. She has been n.p.o. She has a history of smoking as well as coronary artery disease. When she was medically optimized and cleared by the internal medicine team as well as anesthesia department plan was to proceed with surgical intervention of left hip cephalomedullary nail. This would help with pain control as well as early mobilization. We talked about the risk benefits complication alternatives to surgical nonsurgical treatment options. Risks include but are not limited to make it better, make it worse, blood clot, heart attack, stroke, on the table, infection, malunion, nonunion, failed hardware fixation. Understanding these risks he agrees to proceed with surgical intervention. All questions answered. Consent was obtained. Procedure: Patient seen and evaluated in the preoperative holding area. Consent was signed and reviewed with patient. Correct extremity was then marked. Patient was seen evaluated by the anesthesia preoperative team. Once cleared for surgery she was taken back to the operative suite. Given her smoking history plan per anesthesia was a spinal anesthesia. She underwent spinal anesthesia and then was underwent anesthesia per the anesthesia department and she subsequently was then placed onto the [place] bed all bony prominences were well-padded patient was appropriately secured to the bed. Final timeout was performed. Patient received appropriate preoperative antibiotics. Prior to prepping and draping C arm was brought in for imaging evaluation of fracture. Closed reduction maneuver was performed. It was clearly evident patient had a free-floating greater trochanteric piece. We achieved a near close reduction however it was evident we would have to achieve and hold the reduction intraoperatively prior to lag screw and fixation. Left lower extremity was then prepped and draped in standard orthopedic fashion. A standard lateral incision was made just proximal to the greater trochanter roughly 5 cm in length. Sharp scalpel excision through skin and subcutaneous tissue. I then utilized a Taylor elevator to split the fascia directly down to the greater trochanteric piece. This was apparent this was a free-floating fragment. I introduced my guidewire in place. Given this free-floating fracture fragment my initial pin placement was too far posterior however this did help utilizing this as a joystick to hold in acceptable alignment and plate glass installer helper in some of my reduction. I next introduced a second guidewire in the appropriate starting point at the tip of the greater trochanter. This was then introduced just down to the lesser and was in center center position in the canal. Next well holding this reduction I then inserted my and use my opening reamer to open up the canal. Once this was done I then subsequently passed the long ball-tipped guidewire and I passed a 12 mm reamer to make sure she would not accommodate a short 11 mm gamma nail. Fracture line again did not extend in the subtrochanteric region and plan was for a short gamma nail. Next after this was done I then passed the short gamma nail to the appropriate depth. I then took multiple orthogonal images and utilizing a combination of manual manipulation as well as a Taylor elevator and a small blunt pusher from a small stab incision anterior lateral and blunt dissection was carried down to the anterior cortex where there was a free-floating anterior fracture fragment of the intertrochanteric region. This was held in place while I subsequently placed my guidepin and center position and lateral and slightly inferior to help obtain some of the calcar fixation. This was introduced and appropriate tip to apex distance was then measured and was 95 mm. While continuing to utilize my project construction assistant manager for maintaining and holding the reduction I then set my reamer to appropriate 95 mm and then drilled and this had appropriate depth was confirmed. Next I then loaded the 95 mm lag screw and inserted this by hand over the guidewire. This had excellent compression and fixation on the inferior calcar. Of note there was the free-floating greater trochanteric piece of that lateral cortex that was unable to be captured by the lag screw. Given this is free-floating with recommend this be left alone and heal by secondary intention. Once my lag screw was set in appropriate place I then let off some traction and then utilize a compressive device and the [place]ar gamma nail to obtain compression across my main fracture intertrochanteric line. Once I satisfied with this I then inserted my setscrew and locked this into place. X-rays were taken showing stable lag screw fixation with appropriate tip to apex distance. Next a set my outer jig for the distal locking screw in static position. Triple sleeve was then inserted skin incision was then made this was sleeve was then brought down to bone and I subsequently drilled measured and placed a 5 mm x 32.5 mm distal locking screw. This had excellent fixation. This completed her construct. I then remove the outer jig and took final x-rays of AP and laterals of the construct showing stable fixation. On the lateral x-ray I did note the free-floating anterior fracture fragment did lose some of this reduction but I had held during my lag screw fixation and locking on my construct, as I do not feel as my construct would capture this completely. I feel as though this is within acceptable alignment at this point time recommend being left alone and these fractures will heal by secondary bone healing. Wounds were then thoroughly irrigated. Incisions were closed in layered fashion of deep 0 Vicryl fascia as well as 2-0 Vicryl subcutaneous tissue and dennys for the skin. Silverlon dressing was applied. Patient was then awakened from anesthesia transported onto the hospital table and taken to PACU in stable condition. Disposition: Patient taken to PACU in stable condition recovering well. Will return to the floor. Will receive appropriate discharge instructions pain medication DVT prophylaxis. She received postoperative antibiotics on the floor for surgical infection prophylaxis. She will be weightbearing as tolerated to the left lower extremity. Work with PT/OT. She will follow-up with me in office in 2 weeks. Silverlon dressing on in place and should not be changed unless dressing becomes saturated.
--- NOTE | 2022-04-25 13:17 | ANE.PACU2 ---
Inpatient post-anesthesia follow up: Airway intact: Yes Vital signs: Temperature 98.2 F Pulse Rate 105 Respiratory Rate 18 Blood Pressure 118/71 Pulse Oximetry 91 Oxygen Delivery Me thod Nasal Cannula Oxygen Flow Rate 6 Fraction of Inspir ed Oxygen Hydration adequate: Yes Nausea and vomiting: No Pain level: 1 Mental status: Baseline Additional Comments: Rhonchi and wheezing postop, breathing tx given.
[2022-04-25] MEDS: ipratropium-albuterol 3 mL Neb INHALATION (13:25)
--- NOTE | 2022-04-25 14:13 | PC.NURSE ---
Notified Dr. Pena patient has returned from surgery. Dr. Pena verbally ordered the morning medications to be given now and call the doctor who put the order in for Cefazolin to see if time needs to be changed.
[2022-04-25] MEDS: aspirin 81 mg EC Tablet PO (15:05)
[2022-04-25] MEDS: chlorhexidine gluconate 0.12% Btl 473 mL 30 ML MUCOUS MEM ×2 (17:22→21:19)
[2022-04-25] MEDS: sennosides-docusate Tablet 2 TAB PO (18:37)
[2022-04-25] MEDS: calcium carb-vit d 600mg/400unit 1 Tablet 1 EACH PO (18:37)
[2022-04-25] MEDS: iron polysaccharide complex 150 mg Capsule PO (18:37)
[2022-04-25] MEDS: mupirocin oint 22 gm 1 APPLIC NASAL (21:20)
--- NOTE | 2022-04-25 22:43 | PC.NURSE ---
Assessed dressings at 21:25 during physical assessment. Very scant drainage noticed on dressing. Circled, initialed, timed, and dated. Patient reported pain 7/10. Cap refill and dorsalis pedis pulse WNL on left leg below operative site.
[2022-04-26] VITALS (15 sets, daily range): BP systolic 97–108; BP diastolic 57–67; PULSE 86–95; RESP 14–18; TEMP 36.8–37.2; O2SAT 94–100
[2022-04-26] MEDS: enoxaparin 30 mg/0.3 mL Syringe SUBCUT (01:46)
[2022-04-26] MEDS: HYDROmorphone 1 mg/mL INJ 1 mL 0.2 MG IVP ×2 (01:56→17:13)
[2022-04-26] MEDS: ceFAZolin 2,000 MG in sodium chloride 0.9% (plus) 50 ML 100 MG IV ×2 (04:24→11:01)
[2022-04-26 04:55] LABS: Basophils % 0.5 %; Eosinophils # 0.1 10^3/uL (0.0-0.8); Eosinophils % 1.4 %; Hematocrit 34.8 % (37.0-47.0); Hemoglobin 11.5 g/dL (11.5-15.3); Lymphocytes # 1.4 10^3/uL (0.8-4.8); Lymphocytes % 22.1 %; Mean Corpuscular Hemoglobin 32.3 pg (28.0-34.0); Mean Corpuscular Volume 97.8 fl (81-99); Mean Platelet Volume 10.9 fL (7.4-10.4); Monocytes # 0.6 10^3/uL (0.2-0.9); Monocytes % 9.8 %; Neutrophils # 4.23 10^3/uL (1.8-7.7); Neutrophils % 65.9 %; Nucleated Red Blood Cells % 0 %; Red Blood Count 3.56 10^6/uL (4.1-5.3); Red Cell Distribution Width 13.3 % (12.1-15.1); White Blood Count 6.4 10^3/uL (4.0-10.0)
[2022-04-26 05:12] LABS: Platelet Count 132 10^3/cmm (130-400)
[2022-04-26 05:17] LABS: Anion Gap 8.1 (5-19); Blood Urea Nitrogen 3 mg/dL (8-23); Calcium 8.4 mg/dL (8.5-10.5); Carbon Dioxide 29 mmol/L (22-29); Chloride 100 mmol/L (98-107); Glomerular Filtration Rate 125.4 mL/min (90-130); Glucose 91 mg/dL (65-115); Magnesium 1.5 mg/dL (1.7-2.3); Osmolality Calculated 272 mOsm/kg (285-295); Potassium 4.1 mmol/L (3.5-5.1); Sodium 133 mmol/L (136-145)
[2022-04-26] MEDS: nicotine 21 mg Patch 1 PATCH TRANSDERMA (05:22)
[2022-04-26] MEDS: oxyCODONE 5 mg IR Tab/Cap PO ×3 (05:27→21:33)
[2022-04-26] MEDS: magnesium sulfate premix 2 GM/50 ML PIGGYBACK IV (08:52)
[2022-04-26] MEDS: folic acid 1 mg Tablet PO (08:52)
[2022-04-26] MEDS: sennosides-docusate Tablet 2 TAB PO (08:52)
[2022-04-26] MEDS: cholecalciferol (vitamin D3) 1,000 unit Tablet 1000 UNIT PO (08:52)
[2022-04-26] MEDS: multivitamin therapeutic Tablet 1 TAB PO (08:52)
[2022-04-26] MEDS: calcium carb-vit d 600mg/400unit 1 Tablet 1 EACH PO (08:52)
[2022-04-26] MEDS: aspirin 81 mg EC Tablet PO (08:52)
[2022-04-26] MEDS: chlorhexidine gluconate 0.12% Btl 473 mL 30 ML MUCOUS MEM ×2 (08:53→21:34)
--- NOTE | 2022-04-26 10:01 | P.PN_ITS ---
Subjective Subjective: Patient was seen this morning, she sitting up in a chair, she could planes of shortness of breath and pain with exertion, but was able to ambulate to the bathroom 1 time yesterday, she tells me that this morning the chairs are very comfortable, she wants to sit in the chair as long as she can, encourage ambulation as the plan is for her to go home, she does that she has a and sons at home that can help her Vitals/I&O/Wt Last Vital Signs Temp 98.2 F 04/26/22 07:46 Pulse 89 04/26/22 08:42 Resp 16 04/26/22 08:42 BP 102/61 04/26/22 07:46 Pulse Ox 94 04/26/22 08:42 O2 Del Method 04/26/22 08:42 O2 Flow Rate 3 04/26/22 08:42 04/25/22 04/26/22 04/26/22 22:59 06:59 14:59 Intake Total 650 / 900 3170 / 4070 Output Total 700 / 1150 Balance -50 / -250 3170 / 2920 Weight last 48 hrs Weight 45.586 kg Weight 49.895 kg Physical Exam Const: COMMON NORMALS: no acute distress and patient oriented x3 Resp: COMMON NORMALS: normal respiratory effort, No retractions, No use of accessory muscles and clear to auscultation bilaterally AUSCULTATION: clear to auscultation bilaterally Cardio: COMMON NORMALS: regular rate, regular rhythm, S1 normal heart sound present and S2 normal heart sound present RATE: regular rate RHYTHM: regular rhythm HEART SOUNDS: S1 normal heart sound present and S2 normal heart sound present GI: COMMON NORMALS: Normal to inspection, nondistended, normoactive bowel sounds present, non-tender, no masses and no bruits Extremity: COMMON NORMALS: no pedal edema Neuro: COMMON NORMALS: patient oriented x3 Psych: COMMON NORMALS: mental status grossly normal Urinary Catheter Management: Scott: Cath Placed During This Visit: yes, but has since been removed by the nurse Reason for Continuing Indwelling Catheter: Decision to DC Catheter Urinary Catheter Date of Insertion: 04/25/22 Urinary Catheter Time of Insertion: 02:06 Date Urinary Catheter Removed: 04/26/22 Time Urinary Catheter Discontinued: 06:29 Data : 04/26/22 04:43 04/26/22 04:43 A&P Assessment and plan (1) Fracture, intertrochanteric, left femur: (2) Smoking addiction: Plan Status post Left intertrochanteric femur fracture cephalomedullary nail 02 dependent likely from COPD and emphysema, continue 3 L, wean as tolerated Pain control Anticoagulation as per orthopedic team PT OT Likely discharge home in the next 24 hours based on progress with physical therapy, Attestations Medical Necessity Statement*: Patient requires hospitalization for hip fracture, status post surgery, O2 dependent COPD and Coding Level of Care Code Acute Reproduction Order Processor for Sherrie Hayward Diagnoses Fracture, intertrochanteric, left femur S72.142A Smoking addiction F17.200
--- NOTE | 2022-04-26 13:50 | P.PN_ITS ---
Subjective Subjective: Patient seen and examined earlier this afternoon. Patient overall doing well pain controlled with medications. She is gotten up and walked. She will continue to work with therapy. Hemoglobin stable. Dressing on in place clean dry and intact. Patient accompanied by her family in the room today. No other issues overnight. She is still requiring nasal cannula O2. Vitals/I&O/Wt Last Vital Signs Temp 98.3 F 04/26/22 12:00 Pulse 86 04/26/22 12:00 Resp 18 04/26/22 12:00 BP 97/60 04/26/22 12:00 Pulse Ox 96 04/26/22 12:00 O2 Del Method 04/26/22 12:00 O2 Flow Rate 3 04/26/22 12:00 04/25/22 04/26/22 04/26/22 22:59 06:59 14:59 Intake Total 650 / 900 3170 / 4070 Output Total 700 / 1150 Balance -50 / -250 3170 / 2920 Weight last 48 hrs Weight 100 lb 8 oz Weight 110 lb Physical Exam Narrative: Patient able to tolerate hip flexion and internal rotation with minimal to no discomfort. Dressing on in place clean dry and intact no significant saturation noted. Patient can wiggle toes plantarflex and dorsiflex ankle. Distal pulses are palpable. Sensation tact light touch distally. Urinary Catheter Management: Scott: Cath Placed During This Visit: yes, but has since been removed by the nurse Reason for Continuing Indwelling Catheter: Decision to DC Catheter Urinary Catheter Date of Insertion: 04/25/22 Urinary Catheter Time of Insertion: 02:06 Date Urinary Catheter Removed: 04/26/22 Time Urinary Catheter Discontinued: 06:29 Data : 04/26/22 04:43 04/26/22 04:43 A&P Assessment and plan (1) Fracture, intertrochanteric, left femur: Plan Weightbearing as tolerated left lower extremity Ice and elevate as needed Pain control DVT prophylaxis?Lovenox PT/OT Appreciate internal medicine their medical management No further orthopedic surgical intervention required at this time Postop labs reviewed-hemoglobin stable?11.5 Patient recovering well. We will follow patient tomorrow morning. If doing well and hemoglobin stable will sign off from Ortho standpoint. All questions answered by patient and family at this time. Attestations Medical Necessity Statement*: Patient sustained left intertrochanteric hip fracture requiring surgical intervention and postoperative monitoring. Coding Level of Care Code Acute Health Information Systems Technician for Chg Fwd Diagnoses Fracture, intertrochanteric, left femur S72.142A Time Spent (min) 20
[2022-04-26] MEDS: cyclobenzaprine 10 mg Tablet 5 MG PO (18:38)
--- NOTE | 2022-04-26 20:25 | PC.NURSE ---
REPORT TAKEN FROM EULALIA BROUSSARD. PATIENT A&O, VSS. FAMILY CURRENTLY AT BEDSIDE. PATIENT COULD NOT ANSWER TO TIME OF LAST BM, BUT STATES THAT SHE FEELS LIKE SHE WILL HAVE ONE TOMORROW. INCISION SITE OF LEFT HIP DRY AND INTACT, PATIENT ABLE TO WIGGLE FEET. BOTH FEET COOL TO TOUCH, PEDAL PULSES PALPABLE. PATIENT HAS NO FURTHER NEEDS AT THIS TIME.
[2022-04-27] VITALS (10 sets, daily range): BP systolic 103–113; BP diastolic 60–66; PULSE 71–114; RESP 12–20; TEMP 36.7–37.4; O2SAT 85–99
[2022-04-27] MEDS: enoxaparin 30 mg/0.3 mL Syringe SUBCUT (00:42)
[2022-04-27] MEDS: oxyCODONE 5 mg IR Tab/Cap PO ×3 (03:09→12:36)
[2022-04-27 03:35] LABS: Basophils % 0.4 %; Eosinophils # 0.2 10^3/uL (0.0-0.8); Hematocrit 31.4 % (37.0-47.0); Hemoglobin 10.6 g/dL (11.5-15.3); Lymphocytes # 1.5 10^3/uL (0.8-4.8); Lymphocytes % 19.7 %; Mean Corpuscular HGB Conc 33.8 g/dL (30.0-36.0); Mean Corpuscular Hemoglobin 32.3 pg (28.0-34.0); Mean Corpuscular Volume 95.7 fl (81-99); Mean Platelet Volume 11.1 fL (7.4-10.4); Monocytes # 0.9 10^3/uL (0.2-0.9); Neutrophils # 5.03 10^3/uL (1.8-7.7); Neutrophils % 65.4 %; Nucleated Red Blood Cells % 0 %; Platelet Count 141 10^3/cmm (130-400); Red Blood Count 3.28 10^6/uL (4.1-5.3); Red Cell Distribution Width 13.1 % (12.1-15.1); White Blood Count 7.7 10^3/uL (4.0-10.0)
[2022-04-27 04:03] LABS: Anion Gap 9.7 (5-19); Blood Urea Nitrogen 6 mg/dL (8-23); Calcium 8.3 mg/dL (8.5-10.5); Carbon Dioxide 30 mmol/L (22-29); Chloride 101 mmol/L (98-107); Glomerular Filtration Rate 226.2 mL/min (90-130); Glucose 88 mg/dL (65-115); Magnesium 1.5 mg/dL (1.7-2.3); Osmolality Calculated 281 mOsm/kg (285-295); Potassium 3.7 mmol/L (3.5-5.1); Sodium 137 mmol/L (136-145)
[2022-04-27] MEDS: nicotine 21 mg Patch 1 PATCH TRANSDERMA (04:51)
--- NOTE | 2022-04-27 06:49 | P.PN_ITS ---
Subjective Subjective: Patient seen and evaluated this morning. Patient doing well. She has been up and ambulating in her room. She still has some pain in her left hip but overall improved since surgery. Her dressings are all in place clean dry and intact. She has no pain with hip flexion internal rotation on examination. She is wiggle toes plantarflex dorsiflex ankle. This point time stable and expresses she would like to go home later today if possible. Continue to work with therapy. Hospitalist is primary.. Vitals/I&O/Wt Last Vital Signs Temp 98.5 F 04/27/22 03:25 Pulse 93 04/27/22 06:00 Resp 20 H 04/27/22 03:25 BP 113/66 04/27/22 03:25 Pulse Ox 97 04/27/22 03:25 O2 Del Method 04/27/22 03:25 O2 Flow Rate 4 04/27/22 03:25 04/26/22 04/26/22 04/27/22 14:59 22:59 06:59 Intake Total 300 / 300 300 / 600 Output Total 0 / 0 Balance 300 / 300 300 / 600 Weight last 48 hrs Weight 101 lb 4.8 oz Weight 100 lb 8 oz Physical Exam Narrative: Examination: Examination of left lower extremity demonstrates dressings are on in place clean dry and intact no evidence of saturation. She still has mild postoperative pain and tenderness to palpation of the left hip normal postoperative swelling and ecchymosis. She is able to wiggle toes plantarflex and dorsiflex ankle as well as flex and extend knee. Distal pulses intact. Left lower extremity warm well perfused. Compartment soft compressible. Urinary Catheter Management: Scott: Cath Placed During This Visit: yes, but has since been removed by the nurse Reason for Continuing Indwelling Catheter: Decision to DC Catheter Urinary Catheter Date of Insertion: 04/25/22 Urinary Catheter Time of Insertion: 02:06 Date Urinary Catheter Removed: 04/26/22 Time Urinary Catheter Discontinued: 06:29 Data : 04/27/22 03:02 04/27/22 03:02 A&P Assessment and plan (1) Fracture, intertrochanteric, left femur: Plan Weightbearing as tolerated left lower extremity A.m. labs reviewed PT/OT Pain control DVT prophylaxis?[facility] Internal medicine is primary Patient stable for discharge from orthopedic standpoint. Orthopedic surgery team will follow patient peripherally and sign off at this time. If there is any questions pertaining patient care feel free to contact myself. We will have her follow-up with us in office in 2 weeks. Appropriate discharge instructions DVT prophylaxis and pain control and patient's discharge chart. Thank you for allowing us to partake in the care of this patient. Patient understands and agrees with current plan. All questions answered. Attestations Medical Necessity Statement*: Patient had left intertrochanteric femur fracture requiring hospitalization and surgical intervention. Coding Level of Care Code Acute Industrial Hygienist for Sherrie Hayward Diagnoses Fracture, intertrochanteric, left femur S72.142A Time Spent (min) 25
[2022-04-27] MEDS: multivitamin therapeutic Tablet 1 TAB PO (08:43)
[2022-04-27] MEDS: aspirin 81 mg EC Tablet PO (08:43)
[2022-04-27] MEDS: cholecalciferol (vitamin D3) 1,000 unit Tablet 1000 UNIT PO (08:43)
[2022-04-27] MEDS: iron polysaccharide complex 150 mg Capsule PO (08:43)
[2022-04-27] MEDS: magnesium sulfate premix 4 GM/100 ML PREMIX IV (08:44)
[2022-04-27] MEDS: sennosides-docusate Tablet 2 TAB PO (08:44)
[2022-04-27] MEDS: calcium carb-vit d 600mg/400unit 1 Tablet 1 EACH PO (08:44)
[2022-04-27] MEDS: chlorhexidine gluconate 0.12% Btl 473 mL 30 ML MUCOUS MEM ×2 (08:44→12:37)
[2022-04-27] MEDS: folic acid 1 mg Tablet PO (08:44)
--- NOTE | 2022-04-27 10:32 | PM.DCS ---
Discharge Providers Date of Admission: 04/25/22 02:02 Date of Discharge: April 27, 2022 Attending Provider at Admission: Kameron Woo Attending Provider at Discharge: Romie Kauffman MD Primary Care Provider: Amber Allen Diagnoses at Discharge Discharge Diagnosis (1) Fracture, intertrochanteric, left femur: Status: Acute Reason for Visit Reason for Visit: FALL/LEFT HIP PAIN Hospital Course Hospital Course Pleasant 61-year-old lady with history of CAD, prior stenting, smoking addiction was walking her dog who suddenly darted to t[place]o after something causing her to lose her footing falling to the ground.? Subsequently with left hip pain.? In ER noted acute comminuted intertrochanteric fracture of proximal left femur. Patient was admitted to [facility] for left hip fracture, status post cephalomedullary nail, tolerated procedure well, ambulating with inpatient physical therapy. Discharged on pain control anticoagulation as per orthopedic team. Patient requires oxygen during her hospitalization, CT angiogram was negative for underlying pulmonary embolism has a history of smoking, CT did show emphysema. Likely O2 requirement secondary to underlying COPD and emphysema, advised to quit smoking, discharged on 3 to 4 L oxygen, with a follow-up with pulmonary as outpatient. Physical Exam Const: COMMON NORMALS: no acute distress and patient oriented x3 Resp: COMMON NORMALS: normal respiratory effort, No retractions, No use of accessory muscles and clear to auscultation bilaterally AUSCULTATION: clear to auscultation bilaterally Cardio: COMMON NORMALS: regular rate, regular rhythm, S1 normal heart sound present and S2 normal heart sound present RATE: regular rate RHYTHM: regular rhythm HEART SOUNDS: S1 normal heart sound present and S2 normal heart sound present GI: COMMON NORMALS: Normal to inspection, nondistended, normoactive bowel sounds present and non-tender Extremity: COMMON NORMALS: no pedal edema Neuro: COMMON NORMALS: patient oriented x3 Psych: COMMON NORMALS: mental status grossly normal Urinary Catheter Management: Scott: Cath Placed During This Visit: yes, but has since been removed by the nurse Reason for Continuing Indwelling Catheter: Decision to DC Catheter Urinary Catheter Date of Insertion: 04/25/22 Urinary Catheter Time of Insertion: 02:06 Date Urinary Catheter Removed: 04/26/22 Time Urinary Catheter Discontinued: 06:29 Discharge Data Studies Completed and Pending Completed Studies During Hospitalization Category Date Time Status CT hip LT wo con* [id number] Stat Cat Scan 04/25/22 00:19 Completed CTA chest [CT angio chest PE protcl [id number]] Routine Cat Scan 04/25/22 03:30 Completed XR chest 1V portable [id number] Stat Exams 04/25/22 00:20 Completed XR femur LT min 2V* [id number] Stat Exams 04/25/22 00:19 Completed XR hip LT 1V wo/w pel [id number] Routine Exams 04/25/22 12:59 Completed XR hip LT 2-3V wo/w pel* [id number] Routine Exams 04/25/22 13:02 Completed XR hip LT 2-3V wo/w pel* [id number] Stat Exams 04/24/22 23:48 Completed XR knee LT 3V* [id number] Stat Exams 04/25/22 00:19 Completed Pending at discharge Category Date Time Status Basic Metabolic Panel AM LABS Lab 04/28/22 04:00 Ordered Complete Blood Count w/Auto AM LABS Lab 04/28/22 04:00 Ordered Radiology Impressions Femur X-Ray 04/25/22 00:19 IMPRESSION: Acute comminuted intertrochanteric fracture of the proximal left femur. Hip CT 04/25/22 00:19 IMPRESSION: Acute comminuted intertrochanteric fracture of the proximal left femur. Knee X-Ray 04/25/22 00:19 IMPRESSION: There are no acute osseous findings. Chest X-Ray 04/25/22 00:20 IMPRESSION: 1. There is a background of emphysema, bronchiectasis and pulmonary fibrosis. 2. There is asymmetric apical pleural thickening seen on the left appearing stable compared to 07/16/2018. 3. Calcified granuloma seen in the left mid hemithorax. Chest CTA 04/25/22 03:30 IMPRESSION: 1. No pulmonary embolism identified. 2. Significant emphysematous disease again noted with pulmonary scarring. Hip X-Ray 04/25/22 12:59 IMPRESSION: Intraoperative imaging during ORIF LEFT hip. Hip/Pelvis X-Ray 04/25/22 13:02 IMPRESSION: 1. Status post ORIF proximal left femur stabilizing a partially visualized intertrochanteric fracture. Hardware appears intact with no obvious complication. Intertrochanteric fractures are in grossly satisfactory alignment. 2. There is edema and emphysema in the soft tissues surrounding the proximal left femur. Emphysema may be postoperative in nature. Infection/abscess cannot be excluded. Laboratory Results WBC 7.7 10^3/uL (4.0-10.0) 04/27/22 03:02 RBC 3.28 10^6/uL (4.1-5.3) L 04/27/22 03:02 Hgb 10.6 g/dL (11.5-15.3) L 04/27/22 03:02 Hct 31.4 % (37.0-47.0) L 04/27/22 03:02 MCV 95.7 fl (81-99) 04/27/22 03:02 MCH 32.3 pg (28.0-34.0) 04/27/22 03:02 MCHC 33.8 g/dL (30.0-36.0) 04/27/22 03:02 RDW 13.1 % (12.1-15.1) 04/27/22 03:02 Plt Count 141 10^3/cmm (130-400) 04/27/22 03:02 MPV 11.1 fL (7.4-10.4) H 04/27/22 03:02 Neut % (Auto) 65.4 % 04/27/22 03:02 Lymph % (Auto) 19.7 % 04/27/22 03:02 Ocean % (Auto) 11.0 % 04/27/22 03:02 Eos % (Auto) 3.0 % 04/27/22 03:02 Baso % (Auto) 0.4 % 04/27/22 03:02 Neut # (Auto) 5.03 10^3/uL (1.8-7.7) 04/27/22 03:02 Lymph # (Auto) 1.5 10^3/uL (0.8-4.8) 04/27/22 03:02 Ocean # (Auto) 0.9 10^3/uL (0.2-0.9) 04/27/22 03:02 Eos # (Auto) 0.2 10^3/uL (0.0-0.8) 04/27/22 03:02 Baso # (Auto) 0.0 10^3/uL (0.0-0.1) 04/27/22 03:02 Nucleated RBC % (auto) 0 % 04/27/22 03:02 Nucleated RBCs # 0.0 /100WBC 04/27/22 03:02 PT 13.00 SECONDS (12.1-14.9) 04/24/22 23:56 INR 0.95 (0.8-1.2) 04/24/22 23:56 APTT 27.5 SECONDS (23.9-36.7) 04/24/22 23:56 D-Dimer 1.68 ug/mIFEU (0-0.59) H 04/24/22 23:56 Sodium 137 mmol/L (136-145) 04/27/22 03:02 Potassium 3.7 mmol/L (3.5-5.1) 04/27/22 03:02 Chloride 101 mmol/L (98-107) 04/27/22 03:02 Carbon Dioxide 30 mmol/L (22-29) H 04/27/22 03:02 Anion Gap 9.7 (5-19) 04/27/22 03:02 BUN 6 mg/dL (8-23) L 04/27/22 03:02 Creatinine 0.3 mg/dL (0.5-0.9) L 04/27/22 03:02 GFR Calculation 226.2 mL/min (90-130) H 04/27/22 03:02 Glucose 88 mg/dL (65-115) 04/27/22 03:02 Calculated Osmolality 281 mOsm/kg (285-295) L 04/27/22 03:02 Calcium 8.3 mg/dL (8.5-10.5) L 04/27/22 03:02 Magnesium 1.5 mg/dL (1.7-2.3) L 04/27/22 03:02 Total Bilirubin 0.2 mg/dL (0.15-1.2) 04/24/22 23:56 AST 17 U/L (0-32) 04/24/22 23:56 ALT 12 U/L (0-33) 04/24/22 23:56 Alkaline Phosphatase 84 U/L (35-105) 04/24/22 23:56 Total Protein 6.9 g/dL (6.6-8.7) 04/24/22 23:56 Albumin 4.1 g/dL (3.5-5.2) 04/24/22 23:56 Globulin 2.8 g/dL (1.3-4.6) 04/24/22 23:56 Urine Color Yellow (Yellow) 04/25/22 02:06 Urine Appearance Clear (CLEAR) 04/25/22 02:06 Urine pH 6 (5-7) 04/25/22 02:06 Ur Specific Byron 1.020 (1.005-1.030) 04/25/22 02:06 Urine Protein Neg (Negative) 04/25/22 02:06 Urine Glucose (UA) Norm (Normal) 04/25/22 02:06 Urine Ketones Negative (Negative) 04/25/22 02:06 Urine Blood Neg (Negative) 04/25/22 02:06 Urine Nitrate Negative (Negative) 04/25/22 02:06 Urine Bilirubin Neg (Negative) 04/25/22 02:06 Urine Urobilinogen Neg mg/dL (Negative) 04/25/22 02:06 Ur Leukocyte Esterase Negative (Negative) 04/25/22 02:06 Ethyl Alcohol 68 mg/dL (0-10) H 04/24/22 23:56 Coronavirus 229E (PCR) Not detected (NOT DETECT) 04/25/22 06:25 SARS-CoV-2 (PCR) Not detected (NOT DETECT) 04/25/22 06:25 Blood Type O Negative 04/25/22 17:51 Rho(D) Type Negative 04/25/22 17:51 Antibody Screen Negative 04/25/22 17:51 Vitals Last Vital Signs Temp 98.1 F 04/27/22 08:00 Pulse 114 H 04/27/22 08:11 Resp 16 04/27/22 08:43 BP 103/60 04/27/22 08:00 Pulse Ox 99 04/27/22 08:11 O2 Del Method 04/27/22 08:11 O2 Flow Rate 4 04/27/22 08:11 Discharge Plan Discharge Patient Disposition: Home Condition: Stable Prescriptions: New Percocet 5-325 mg tablet 1 tab PO Q6H PRN (Reason: pain) 7 Days Qty: 28 0RF aspirin 81 mg Tablet,Delayed Release (Dr/Ec) 81 mg PO DAILY 30 Days Qty: 30 0RF multivitamin with folic acid [Thera] 400 mcg Tablet 1 tab PO DAILY 30 Days Qty: 30 0RF calcium carbonate-vitamin D3 600 mg-10 mcg (400 unit) Tablet 1 ea PO BID 30 Days Qty: 60 0RF ondansetron 4 mg tablet,disintegrating 4 mg PO DAILY PRN (Reason: nausea and vomiting) 5 Days Qty: 10 0RF cyclobenzaprine 10 mg Tablet 5 mg PO TID PRN (Reason: Muscle Spasms) 7 Days Qty: 11 0RF nicotine 21 mg/24 hr Patch 24 Hour 1 patch transdermal Q24H 28 Days Qty: 28 0RF enoxaparin [Lovenox] 30 mg/0.3 mL syringe 30 mg SUBCUT DAILY 30 Days Qty: 30 0RF albuterol sulfate 90 mcg/actuation HFA aerosol inhaler 1 inh inhalation Q6H PRN (Reason: shortness of breath or wheezing) Qty: 8.5 0RF fluticasone propion-salmeterol [Advair Diskus] 100-50 mcg/dose blister with device 1 inh inhalation BID Qty: 60 0RF No Action No Known Home Medications Discharge Orders: Discharge Order (Routine); Ordered 04/27/22 Ordered By: Romie Kauffman Referrals: Tong Tim MD [Physician] - 1 week Amber Allen FNP [Primary Care Provider] - 1 week Nic Menchaca DO [Physician] - Discharge Diet: Advance as tolerated Discharge Activity: Limit activity as instructed Patient Instructions: Opioid Safety Activity Restrictions/Additional Instructions: Orthopedic discharge instructions: Patient may be weightbearing as tolerated to the left lower extremity Take pain medication as prescribed Take DVT prophylaxis as prescribed?Lovenox Take antinausea medication as needed Supplement with Citracal vitamin D Ice as needed Keep dressing in place and may change if becomes saturated, keep incision clean dry and intact. May take dressing off to shower and reapply a new dry dressing, no baths or soaks\ Follow-up with Dr. Menchaca in office in 2 weeks. Contact the office for any questions or concerns -Advised to quit smoking -Take albuterol as needed for shortness of breath, Advair twice daily -Continue to ambulate monitor for symptoms of fevers, cough, pneumonia go to emergency room if you develop these -Follow-up with primary care provider in 1 week Discharge Attestations Time Spent in Discharge Care*: less than 30 min Quality Metrics Clinical Quality Measures [ No reported AMI, CVA or VTE this stay] Coding Level of Care Code Acute Chg FW DC note Exam Detailed Diagnoses Fracture, intertrochanteric, left femur S72.142A
[2022-04-27] MEDS: cyclobenzaprine 10 mg Tablet 5 MG PO (14:06)
== END 2022-04-27 14:36 | disposition home or self-care (01) | DRG 482 ==
LOC: ER 04-25 02:12 → MEDSURG 04-25 02:24
PROVIDERS: Student in an Organized Health Care Education/Training Program; Admitting Provider Internal Medicine; Emergency Provider Emergency Medicine; PCP Nurse Practitioner Family; Visit Provider Family Medicine
PROC: 0QS706Z Reposition Left Upper Femur with Intramedullary Internal Fixation Device, Open Approach (ICD-10-PCS; CPT 27245; principal; 2022-04-25 10:10)
DX: S72.142A Displaced intertrochanteric fracture of left femur, initial encounter for closed fracture (principal); W01.0XXA Fall on same level from slipping, tripping and stumbling without subsequent striking against object, initial encounter; F17.210 Nicotine dependence, cigarettes, uncomplicated; I25.10 Atherosclerotic heart disease of native coronary artery without angina pectoris; Z95.5 Presence of coronary angioplasty implant and graft; J43.9 Emphysema, unspecified; F10.129 Alcohol abuse with intoxication, unspecified; Y90.3 Blood alcohol level of 60-79 mg/100 ml; E87.6 Hypokalemia; I25.2 Old myocardial infarction
CPT/HCPCS: 36415; 51702; 71045; 71275; 73501; 73502; 73552; 73562; 73700; 76000; 80048; 80053; 80307; 81003; 83735; 85025; 85378; 85610; 85730; 86850; 86900; 87635; 93005; 94760; 96372; 96374; 96375; 97110; 97116; 97161; 97165; 97530; 99285; C1713; J0131; J0690; J1170; J1644; J1650; J1885; J2250; J2270; J2405; J2704; J3010; J3411; J3475; J7030; P9047; Q9967

== ENCOUNTER → 2022-05-11 10:27 | Outpatient (BNVA) | payer SELFPAY | PROVIDERS: PCP Nurse Practitioner Family; Visit Provider Student in an Organized Health Care Education/Training Program | DX: S72.142D Displaced intertrochanteric fracture of left femur, subsequent encounter for closed fracture with routine healing (principal); X58.XXXD Exposure to other specified factors, subsequent encounter | CPT/HCPCS: 73502; 73560; 73565 ==

== ENCOUNTER → 2022-06-08 09:17 | Outpatient (BNVA) | payer SELFPAY | PROVIDERS: PCP Nurse Practitioner Family; Visit Provider Student in an Organized Health Care Education/Training Program | DX: S72.142A Displaced intertrochanteric fracture of left femur, initial encounter for closed fracture (principal); X58.XXXA Exposure to other specified factors, initial encounter | CPT/HCPCS: 73502 ==

== ENCOUNTER → 2022-09-06 08:57 | Outpatient (BNVA) | payer SELFPAY | PROVIDERS: PCP Nurse Practitioner Family; Visit Provider Student in an Organized Health Care Education/Training Program | DX: S72.142A Displaced intertrochanteric fracture of left femur, initial encounter for closed fracture (principal); X58.XXXA Exposure to other specified factors, initial encounter; Z98.890 Other specified postprocedural states | CPT/HCPCS: 73502 ==

== ENCOUNTER 2023-08-08 15:35 | Emergency (ER) | payer SELFPAY ==
--- NOTE | 2023-08-08 15:39 | XRR_ITS ---
PROCEDURE INFORMATION: Exam: XR Chest Exam date and time: 08/08/2023 3:58 PM Age: 63 years old Clinical indication: Pain; Chest pressure; Prior surgery; Surgery date: 6+ months; Surgery type: Cardiac stents; Additional info: Cp TECHNIQUE: Imaging protocol: Radiologic exam of the chest. Views: 1 view. COMPARISON: CT angio chest PE protcl [id number] 04/25/2022 9:56 AM FINDINGS: Lungs: No focal consolidation. Severe emphysematous changes. Left apical fibronodular changes with calcification noted. Pleural spaces: No evidence of pneumothorax. No evidence of pleural effusion. Heart/Mediastinum: Cardiomediastinal silhouette is within normal limits. Bones/joints: No evidence of acute osseous abnormality. XR/XR chest 1V portable [id number] IMPRESSION: 1. No acute cardiopulmonary abnormality. 2. Severe emphysematous changes.
--- NOTE | 2023-08-08 15:45 | ECG_ITS ---
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 Measurements Intervals [place] Rate: 93 P: 87 NM: 138 QRS: 90 QRSD: 78 T: 86 QT: 347 QTc: 433 Interpretive Statements SINUS RHYTHM ANTEROSEPTAL MYOCARDIAL INFARCTION , OF INDETERMINATE AGE [40+ ms Q WAVE IN V1-V4] Compared to ECG 04/25/2022 01:02:02 Sinus tachycardia no longer present Myocardial infarct finding still present Electronically Signed On 08-09-2023 16:31:46 COMMERCIAL REPORTER by Srinivas Daniel M.D. [id number]
[2023-08-08 15:48] VITALS: BP 117/76; PULSE 90; RESP 12; TEMP 36.7; O2SAT 94; BMI 19.1
--- NOTE | 2023-08-08 16:01 | ED_ITS ---
HPI - Chest Pain 2 General: Chief Complaint: Chest Pain Stated Complaint: chest pain Time Seen by Provider: 08/08/23 15:53 Source: patient Mode of arrival: ambulatory Limitations: no limitations History of Present Illness: Patient is a 63-year-old with a history of CAD and chronic smoking here for complaints of left-sided chest pain. Patient tells me over the past week she has noticed intermittent episodes of sharp left-sided chest pains. She states symptoms last approximately a few seconds to up to a few minutes before subsiding on their own. Has not noticed any alleviating or worsening factors to her discomfort. Pain does not seem to be affected by position or exertion. She states she does feel somewhat short of breath however states this is chronic for her given her chronic smoking history. Patient states her one cardiac stent was placed many years ago and she has failed to have any form of follow-up following this. She has not noticed any swelling to her lower extremities or calf pain. MD complaint: chest pain Pertinent past history: coronary artery disease Onset (ago): week(s) Timing of current episode: episodic Prior episodes: Yes Onset: during rest Pain location: left chest Pain radiation: none Severity: moderate Quality: sharp Relieving factors: nothing Exacerbating factors: nothing Associated symptoms: Reports dyspnea (chronic smoker); Deny abdominal pain, fever(s), nausea, palpitations, syncope or vomiting Treatment prior to arrival: none Risk Factors: Coronary artery disease risk factors: smoking history Thoracic aortic dissection risk factors: none Related Data: On Oral Contraceptives: No Review of Systems 2 Const: Denies: fever(s), chills, body aches, fatigue or malaise Eyes: Denies: change in vision or blurry vision Card: Reports: chest pain; Denies: palpitations, irregular heart rhythm, edema, swelling of feet/ankles, lightheadedness, syncope, pre-syncope, dyspnea on exertion, orthopnea, leg pain with exertion or acrocyanosis Resp: Reports: dyspnea (chronic smoker); Denies: productive cough, non-productive cough, wheezing, stridor, pain on inspiration, change in phlegm color, hemoptysis or chest congestion GI: Denies: abdominal pain, nausea, vomiting, heartburn or diarrhea : Denies: dysuria Musc: Denies: neck pain, back pain, extremity pain, extremity swelling or joint pain Skin/Breast: Denies: rash Neuro: Denies: weakness in extremities, sensory changes, difficulty walking or dizziness PFSH ED 2 PFSH: Medical History Fracture, intertrochanteric, left femur CAD (coronary artery disease) Surgical History Stented coronary artery Hx of appendectomy Family History Other Cancer Social History Smoking and tobacco/nicotine status: current every day tobacco/nicotine user cigarettes Packs smoked per day: 1 Alcohol intake: current Alcohol intake frequency: 0-2 Drinks per Day Substance/Drug Use: never Lives independently: Yes Household members: spouse Marital status: Physical Exam 2 Const: COMMON NORMALS: no acute distress, patient oriented x3, no limitations and alert GENERAL APPEARANCE: cooperative and appears older than stated age NUTRITIONAL APPEARANCE: thin ORIENTATION/CONSCIOUSNESS: Yes awake, Yes oriented to person, Yes oriented to place and Yes oriented to time Neck/C-Spine: COMMON NORMALS: no JVD Resp: COMMON NORMALS: normal respiratory effort and clear to auscultation bilaterally AUSCULTATION: clear to auscultation bilaterally Cardio: COMMON NORMALS: no JVD, regular rate and regular rhythm RATE: r egular rate RHYTHM: regular rhythm Extremity: COMMON NORMALS: no clubbing, cyanosis or edema, no calf tenderness and no pedal edema Neuro: MARYLU COMA SCALE: document GCS findings Marylu coma scale eye opening: Spontaneous Marylu coma scale verbal response: Orientated Varney coma scale motor response: Obey commands Marylu coma scale total score: 15 COMMON NORMALS: patient oriented x3, moves all extremities, no focal motor deficits, no sensory deficits noted and gait normal SENSORIUM/ORIENTATION: Yes alert, Yes oriented to person, Yes oriented to place and Yes oriented to time Skin: COMMON NORMALS: no rashes or lesions noted GENERAL SKIN EXAM: no rashes or lesions noted Course 2 Vital Signs: Vital signs: Vital Signs Temperature 98.0 F 08/08/23 15:48 Pulse Rate 90 08/08/23 15:48 Respiratory Rate 12 08/08/23 15:48 Blood Pressure 117/76 08/08/23 15:48 Pulse Oximetry 94 08/08/23 15:48 Oxygen Delivery Me thod Room Air 08/08/23 15:48 MDM - Chest Pain Medical Decision Making Patient is a 63-year-old female here for complaints of episodes of left-sided chest pain over the past week. She states over the past week she has had a few episodes daily of sharp short-lived left-sided chest pains. There is no radicular symptoms. She states symptoms only last a few seconds to a few minutes before subsiding on their own. They do not seem to be affected by position or exertion. Patient does have a history of a previous cardiac stent. She is an everyday smoker. She states following her cardiac stent she was placed on medications however she has not been compliant with these in many years. Upon arrival to the emergency department she appears in no acute distress. Her vital signs are completely normal. Blood work including baseline troponin is normal. There is no need to repeat a 2-hour troponin based on her length of symptoms by history. Her EKG is nonischemic. Her CXR showing severe emphysema. Patient was encouraged to stop smoking. I would like her to follow- up with her primary care provider. I will place a case management referral to get her set up with a telephone instrument supervisor. She was given strict return ED precautions regarding worsening chest pains. Heart score is 2-3 and low risk. Wells score of 0. Medical Records I reviewed the patient's medical records. Lab Data I reviewed the patient's lab results. 08/08/23 15:57 08/08/23 15:57 Radiology Impressions Chest X-Ray 08/08/23 15:39 IMPRESSION: 1. No acute cardiopulmonary abnormality. 2. Severe emphysematous changes. Laboratory Results WBC 7.71 10^3/uL (3.29-11.43) 08/08/23 15:57 RBC 5.34 10^6/uL (3.85-5.65) 08/08/23 15:57 Hgb 16.30 g/dL (11.27-16.99) 08/08/23 15:57 Hct 49.6 % (36-47) H 08/08/23 15:57 MCV 92.9 fl (85-98) 08/08/23 15:57 MCH 30.5 pg (27-33) 08/08/23 15:57 MCHC 32.9 g/dL (30-55) 08/08/23 15:57 RDW 12.8 % (12.1-15.1) 08/08/23 15:57 Plt Count 296 10^3/cmm (157-399) 08/08/23 15:57 MPV 9.7 fL (7.4-10.4) 08/08/23 15:57 Neut % (Auto) 68.0 % 08/08/23 15:57 Lymph % (Auto) 20.5 % 08/08/23 15:57 [place] % (Auto) 8.3 % 08/08/23 15:57 Eos % (Auto) 1.8 % 08/08/23 15:57 Baso % (Auto) 0.9 % 08/08/23 15:57 Neut # (Auto) 5.24 10^3/uL (1.8-7.7) 08/08/23 15:57 Lymph # (Auto) 1.6 10^3/uL (0.8-4.8) 08/08/23 15:57 [place] # (Auto) 0.6 10^3/uL (0.2-0.9) 08/08/23 15:57 Eos # (Auto) 0.1 10^3/uL (0.0-0.8) 08/08/23 15:57 Baso # (Auto) 0.1 10^3/uL (0.0-0.1) 08/08/23 15:57 Nucleated RBC % (auto) 0 % 08/08/23 15:57 Nucleated RBCs # 0.0 /100WBC 08/08/23 15:57 PT 13.00 SECONDS (12.1-14.9) 08/08/23 15:57 INR 0.95 (0.8-1.2) 08/08/23 15:57 Sodium 134 mmol/L (136-145) L 08/08/23 15:57 Potassium 4.6 mmol/L (3.5-5.1) 08/08/23 15:57 Chloride 96 mmol/L (98-107) L 08/08/23 15:57 Carbon Dioxide 29 mmol/L (22-29) 08/08/23 15:57 Anion Gap 13.6 (5-19) 08/08/23 15:57 BUN 6 mg/dL (8-23) L 08/08/23 15:57 Creatinine 0.5 mg/dL (0.5-0.9) 08/08/23 15:57 GFR Calculation 124.6 mL/min (90-130) 08/08/23 15:57 Glucose 146 mg/dL (65-115) H 08/08/23 15:57 Calculated Osmolality 278 mOsm/kg (285-295) L 08/08/23 15:57 Calcium 8.7 mg/dL (8.5-10.5) 08/08/23 15:57 Total Bilirubin 0.2 mg/dL (0.15-1.2) 08/08/23 15:57 AST 17 U/L (0-32) 08/08/23 15:57 ALT 10 U/L (0-33) 08/08/23 15:57 Alkaline Phosphatase 100 U/L (35-105) 08/08/23 15:57 Troponin T Baseline 8 ng/L (0-10) 08/08/23 15:57 Total Protein 7.3 g/dL (6.6-8.7) 08/08/23 15:57 Albumin 3.7 g/dL (3.5-5.2) 08/08/23 15:57 Globulin 3.6 g/dL (1.3-4.6) 08/08/23 15:57 Lipase 104 U/L (13-60) H 08/08/23 15:57 All radiology interpretation(s) finalized by discharge Discharge Plan Discharge Patient Disposition: Home Clinical Impression: Chest pain Qualifiers: Chest pain type: unspecified Qualified Code(s): R07.9 - Chest pain, unspecified Condition: Stable Prescriptions: No Action Aspir-81 81 mg Tablet,Delayed Release (Dr/Ec) 81 mg PO QPM Discharge Orders: Discharge ED (Routine); Ordered 08/08/23 Ordered By: Pita Vernon Referrals: Amber Allen FNP [Primary Care Provider] - Patient Instructions: Chest Pain (DC) Activity Restrictions/Additional Instructions: As we discussed I am placing a referral to have case management set you up with a telephone instrument supervisor. It is imperative that you follow-up with them given your previous cardiac stent and other risk factors such as smoking. If you cannot get into see them within a reasonable amount of time I would like you to follow- up with your primary care provider. As we discussed you need to return to the emergency department immediately for worsening or more frequent episodes of chest pain, any chest pain that is brought on by exertion, significant shortness of breath or difficulty breathing, or any other concerns she may have. Coding Level of Care Code ED Marketing Regional Consultant for Sherrie Hayward
[2023-08-08 16:04] LABS: Basophils # 0.1 10^3/uL (0.0-0.1); Basophils % 0.9 %; Eosinophils # 0.1 10^3/uL (0.0-0.8); Eosinophils % 1.8 %; Hematocrit 49.6 % (36-47); Lymphocytes # 1.6 10^3/uL (0.8-4.8); Lymphocytes % 20.5 %; Mean Corpuscular HGB Conc 32.9 g/dL (30-55); Mean Corpuscular Hemoglobin 30.5 pg (27-33); Mean Corpuscular Volume 92.9 fl (85-98); Mean Platelet Volume 9.7 fL (7.4-10.4); Monocytes # 0.6 10^3/uL (0.2-0.9); Monocytes % 8.3 %; Neutrophils # 5.24 10^3/uL (1.8-7.7); Nucleated Red Blood Cells % 0 %; Platelet Count 296 10^3/cmm (157-399); Red Blood Count 5.34 10^6/uL (3.85-5.65); Red Cell Distribution Width 12.8 % (12.1-15.1); White Blood Count 7.71 10^3/uL (3.29-11.43)
[2023-08-08 16:18] LABS: INR 0.95 (0.8-1.2)
[2023-08-08 16:20] LABS: Troponin(5th) Baseline 8 ng/L (0-10)
[2023-08-08 16:22] LABS: Alanine Aminotransferase 10 U/L (0-33); Albumin Level 3.7 g/dL (3.5-5.2); Alkaline Phosphatase 100 U/L (35-105); Anion Gap 13.6 (5-19); Aspartate Amino Transferase 17 U/L (0-32); Blood Urea Nitrogen 6 mg/dL (8-23); Calcium 8.7 mg/dL (8.5-10.5); Carbon Dioxide 29 mmol/L (22-29); Chloride 96 mmol/L (98-107); Globulin 3.6 g/dL (1.3-4.6); Glomerular Filtration Rate 124.6 mL/min (90-130); Glucose 146 mg/dL (65-115); Lipase 104 U/L (13-60); Osmolality Calculated 278 mOsm/kg (285-295); Potassium 4.6 mmol/L (3.5-5.1); Sodium 134 mmol/L (136-145); Total Bilirubin 0.2 mg/dL (0.15-1.2); Total Protein 7.3 g/dL (6.6-8.7)
[2023-08-08 16:48] VITALS: BP 131/73; PULSE 93; O2SAT 90
--- NOTE | 2023-08-08 18:17 | DCPLANNER ---
Message was sent to heart care on 08/08/23 at 2901. Clinic to contact patient for appt for chest pain
== END 2023-08-08 16:50 | disposition home or self-care (01) ==
PROVIDERS: Emergency Medicine; Emergency Provider Physician Assistant; PCP Nurse Practitioner Family
DX: R07.9 Chest pain, unspecified (principal); Z79.82 Long term (current) use of aspirin; I25.10 Atherosclerotic heart disease of native coronary artery without angina pectoris; F17.210 Nicotine dependence, cigarettes, uncomplicated
CPT/HCPCS: 36415; 71045; 80053; 83690; 84484; 85025; 85610; 93005; 99285

== ENCOUNTER 2025-06-04 18:40 | Inpatient (IN) | payer SELFPAY ==
[2025-06-04] VITALS (15 sets, daily range): BP systolic 101–161; BP diastolic 56–104; PULSE 87–119; RESP 12–35; TEMP 37–37.1; O2SAT 90–100; BMI 16.6; BMI 16.5
--- NOTE | 2025-06-04 18:31 | XRR_ITS ---
PROCEDURE INFORMATION: Exam: XR Chest Exam date and time: 06/04/2025 6:49 PM Age: 65 years old Clinical indication: Shortness of breath; Prior surgery; Surgery date: 6+ months; Surgery type: Cardiac stents; Additional info: Dyspnea/cough TECHNIQUE: Imaging protocol: Radiologic exam of the chest. Views: 1 view. COMPARISON: CR XR chest 1V portable [id number] 08/08/2023 3:58 PM FINDINGS: Lungs: Emphysematous changes. Right lower lung patchy airspace opacities. Pleural spaces: Left apical pleural calcifications/scarring. Small right pleural effusion. No pneumothorax. Heart/Mediastinum: Heart size can not be accurately assessed in this projection. Bones/joints: Unremarkable. XR/XR chest 1V portable [id number] IMPRESSION: 1. Right lower lung patchy airspace opacities. Correlate clinically for pneumonia. Recommend 6-8 week follow-up to assess for resolution. 2. Small right pleural effusion.
--- NOTE | 2025-06-04 18:42 | ECG_ITS ---
[place] [facility] Date: 2025-06-04 Pat Name: Carola Reynoso Department: Room: Gender: Female Javascript Front End Developer: : 1960 Requested By: Alberto Pichardo Order Number: [id number] Jennifer MD: Roverto Neri M.D. Measurements Intervals [place] Rate: 107 P: 80 CT: 119 QRS: 120 QRSD: 85 T: 59 QT: 321 QTc: 430 Interpretive Statements SINUS TACHYCARDIA WITH SHORT CT INTERVAL RIGHT AXIS DEVIATION [QRS AXIS > 100] LOW QRS VOLTAGE IN EXTREMITY LEADS [QRS DEFLECTION < 0.5 mV IN LIMB LEADS] PATTERN CONSISTENT WITH PULMONARY DISEASE Compared to ECG 08/08/2023 15:45:[address] interval now present Right-axis deviation now present Low QRS voltage now present Sinus rhythm no longer present Myocardial infarct finding no longer present Electronically Signed On 06-06-2025 17:31:23 WOMEN'S GARMENT FITTER by Roverto Neri M.D. [email or web address]
[2025-06-04 18:47] LABS: ABG PH Result 7.29 (7.35-7.45); Alveolar-Arterial Oxygen Gradi 69.4 mmHg (5-10); Arterial Blood Gas Hematocrit 55.6 % (37-47); Blood Gas LPM 15.0 %; Blood Gas Operator Identificat GD; Blood Gas Sample Site Brachial, right; Blood Gas Sample Type Arterial; Carboxyhemoglobin 5.6 %THgb (0.4-20.1); Glucose Level-ABG 130.0 mg/dL (70-115); HCO3 ABG 37.7 mmol/L (22-26); Ionized Calcium Level - ABG 1.1 mmol/L (1.1-1.4); Methemoglobin 0.8 % (0.4-1.5); Oxygen Saturation ABG 94.2; PO2 ABG 81.9 mmHg (80.0-100.0); PO2 FiO2 Ratio Arterial Blood 81; Potassium Level - ABG 4.9 mmol/L (3.5-5.0); Sodium Level - ABG 119.0 mmol/L (131-143)
[2025-06-04 18:48] LABS: ABG PCO2 79.1 mmHg (35-45)
[2025-06-04 18:48] LABS: Hematocrit 52.3 % (36-47); Hemoglobin 17.70 g/dL (11.27-16.99); Mean Corpuscular HGB Conc 33.8 g/dL (30-55); Mean Corpuscular Hemoglobin 30.9 pg (27-33); Mean Corpuscular Volume 91.3 fl (85-98); Nucleated Red Blood Cells % 0 %; Platelet Count 145 10^3/cmm (157-399); Red Blood Count 5.73 10^6/uL (3.85-5.65); White Blood Count 14.88 10^3/uL (3.29-11.43)
[2025-06-04 19:09] LABS: Alanine Aminotransferase 16 U/L (0-33); Albumin Level 2.8 g/dL (3.5-5.2); Alkaline Phosphatase 90 U/L (35-105); Anion Gap 12.2 (5-19); Aspartate Amino Transferase 34 U/L (0-32); Blood Urea Nitrogen 14 mg/dL (8-23); Calcium 7.7 mg/dL (8.5-10.5); Carbon Dioxide 32 mmol/L (22-29); Chloride 84 mmol/L (98-107); Globulin 2.9 g/dL (1.3-4.6); Glucose 135 mg/dL (65-115); Osmolality Calculated 259 mOsm/kg (285-295); Potassium 5.2 mmol/L (3.5-5.1); Sodium 123 mmol/L (136-145); Total Protein 5.7 g/dL (6.6-8.7)
[2025-06-04] MEDS: methylPREDNISolone sod succ 125 mg/2 mL INJ IVP (19:22)
[2025-06-04] MEDS: magnesium sulfate premix 2 GM/50 ML PIGGYBACK IV (19:22)
--- NOTE | 2025-06-04 19:33 | PC.NURSE ---
Pt. refused covid, rsv, flu swab.
--- NOTE | 2025-06-04 19:35 | ED_ITS ---
HPI - SOB/Dyspnea 2 General: Chief Complaint: Shortness of Breath/Dyspnea Stated Complaint: SOB History of Present Illness: HPI Narrative: 65-year-old female presents emergency ro om with complaints of severe shortness of breath. Patient has end-stage COPD she is adamant that she does not want any kind of treatment or intervention for resuscitation. Specifically does not want to be intubated does not want CPR started. She has had increasing cough decreasing responsiveness last few days she denies chest or abdominal pain. Cough is moderately productive. Associated symptoms: Reports chest congestion; Deny abdominal pain, chest pain or fever(s) Related Data Home Medications ?Medication ?Instructions ?Recorded ?Confirmed aspirin 81 mg tablet,delayed 81 mg PO QPM 08/08/2304/20 release Allergies Allergy/AdvReac Type Severity Reaction Status Date / Time No Known Allergies Allergy Verified 08/08/23 15:48 Review of Systems 2 Const: Denies: fever(s) or chills Card: Denies: chest pain Resp: Reports: dyspnea, wheezing and chest congestion GI: Denies: abdominal pain : Denies: dysuria, urinary frequency or urinary urgency Musc: Denies: neck pain or back pain Skin/Breast: Denies: rash PFSH ED 2 PFSH: Medical History CAD (coronary artery disease) Weight loss Fracture, intertrochanteric, left femur Surgical History Stented coronary artery Hx of appendectomy Family History Other Cancer Social History Smoking and tobacco/nicotine status: current every day tobacco/nicotine user cigarettes Packs smoked per day: 0.5 Alcohol intake: current Alcohol intake frequency: 0-2 Drinks per Day Substance/Drug Use: never Additional social history: Patient once DNR status and no intubation as discussed with Dr. Cordova and Kareem Yin MD on 06/04/2025. Stefanie and Edda present at the time of my discussion Lives independently: Yes Household members: spouse Marital status: Physical Exam 2 Const: GENERAL APPEARANCE: cooperative ORIENTATION/CONSCIOUSNESS: Yes awake, Yes oriented to person, Yes oriented to place and Yes oriented to time HENMT: COMMON NORMALS: normocephalic, atraumatic and hearing grossly normal bilaterally HEAD & SCALP: normocephalic and atraumatic Resp: COMMON NORMALS: normal respiratory effort, No retractions and No use of accessory muscles AUSCULTATION: rhonchi, wheezes and diminished lung sounds Cardio: COMMON NORMALS: regular rate, regular rhythm and No murmurs present (Cardio) RATE: regular rate RHYTHM: regular rhythm GI: COMMON NORMALS: Soft to palpation and No hepatosplenomegaly present A USCULTATION: Yes normoactive bowel sounds PALPATION: Yes Soft to palpation, No Tenderness to palpation present (GI), No Guarding due to palpation present (GI) and Yes No hepatosplenomegaly present Extremity: COMMON NORMALS: normal to inspection, capillary refill normal, no clubbing, cyanosis or edema, no calf tenderness and no pedal edema Neuro: SENSORIUM/ORIENTATION: Yes oriented to person, Yes oriented to place and Yes oriented to time Skin: COMMON NORMALS: no rashes or lesions noted GENERAL SKIN EXAM: no rashes or lesions noted Course 2 Vital Signs: Vital signs: Vital Signs Temperature 97.2 F L 06/05/25 08:15 Pulse Rate 95 06/05/25 16:00 Respiratory Rate 18 06/05/25 16:00 Blood Pressure 85/58 06/05/25 16:00 Pulse Oximetry 92 06/05/25 16:00 Oxygen Delivery Me thod BiPAP 06/05/25 16:00 Oxygen Flow Rate 50 06/04/25 18:55 Fraction of Inspir ed Oxygen 35 06/05/25 16:00 MDM - SOB/Dyspnea Medical Decision Making Medical decision making Social determinants: Extremely poor health dependent on others for ADLs. I reviewed the patient's medical record. I reviewed the patient's current home meds. Alternate historians: Family members Differential diagnosis: Exacerbation COPD pneumonia pneumothorax Lab Review: Leukocytosis white count of 14 8 mild polycythemia with a hemoglobin of 17 7 suspect hemoconcentration blood gas shows respiratory acidosis with a pCO2 of 79 and a pO2 to of 81.9 pH 7.29. Patient is hyperkalemic mildly hyponatremic as well. Lactic acid of 1. Urine ordered but not resulted yet. Imaging: Chest x-ray shows hyperinflation with chronic fibrotic changes, right sided early infiltrates Assessment of risk Level of risk: High Hospitalization considerations: Admission for severe COPD exacerbation with hypercapnia and hypoxia early pneumonia Reexamination: Mild improvement on BiPAP Assessment and plan: Patient is adamant about being no code. Will admit on BiPAP start IV antibiotics. Continue steroids aggressive pulmonary toilet discussed with hospitalist orders written Lab Data 06/05/25 05:45 06/05/25 10:06 Labs/Radiology: Radiology Impressions Chest X-Ray 06/05/25 08:00 IMPRESSION: Presumed stable abnormal chest. Laboratory Results WBC 14.88 10^3/uL (3.29-11.43) H 06/04/25 18:37 RBC 5.73 10^6/uL (3.85-5.65) H 06/04/25 18:37 Hgb 17.70 g/dL (11.27-16.99) H 06/04/25 18:37 Hct 52.3 % (36-47) H 06/04/25 18:37 MCV 91.3 fl (85-98) 06/04/25 18:37 MCH 30.9 pg (27-33) 06/04/25 18:37 MCHC 33.8 g/dL (30-55) 06/04/25 18:37 RDW 13.3 % (12.1-15.1) 06/04/25 18:37 Plt Count 145 10^3/cmm (157-399) L 06/04/25 18:37 MPV 9.3 fL (7.4-10.4) 06/04/25 18:37 Neut % (Auto) 85.7 % 06/04/25 18:37 Lymph % (Auto) 3.2 % 06/04/25 18:37 [place] % (Auto) 10.4 % 06/04/25 18:37 Eos % (Auto) 0.0 % 06/04/25 18:37 Baso % (Auto) 0.2 % 06/04/25 18:37 Neut # (Auto) 12.76 10^3/uL (1.8-7.7) H 06/04/25 18:37 Lymph # (Auto) 0.5 10^3/uL (0.8-4.8) L 06/04/25 18:37 [place] # (Auto) 1.6 10^3/uL (0.2-0.9) H 06/04/25 18:37 Eos # (Auto) 0.0 10^3/uL (0.0-0.8) 06/04/25 18:37 Baso # (Auto) 0.0 10^3/uL (0.0-0.1) 06/04/25 18:37 Nucleated RBC % (auto) 0 % 06/04/25 18:37 Nucleated RBCs # 0.0 /100WBC 06/04/25 18:37 Specimen Type Arterial 06/04/25 18:30 Sample Site Brachial, right 06/04/25 18:30 ABG pH 7.29 (7.35-7.45) L 06/04/25 18:30 ABG pCO2 79.1 mmHg (35-45) H* 06/04/25 18:30 ABG pO2 81.9 mmHg (80.0-100.0) 06/04/25 18:30 ABG PO2/FiO2 Ratio 81 06/04/25 18:30 ABG HCO3 37.7 mmol/L (22-26) H 06/04/25 18:30 ABG O2 Saturation 94.2 06/04/25 18:30 ABG Base Excess 6.8 mmol/L (-2.0-2.0) H 06/04/25 18:30 Aime Test N/a 06/04/25 18:30 A-a O2 Gradient 69.4 mmHg (5-10) H 06/04/25 18:30 Hematocrit 55.6 % (37-47) H 06/04/25 18:30 Hgb O2 Saturation 88.2 % (95-100) L 06/04/25 18:30 Carboxyhemoglobin 5.6 %THgb (0.4-20.1) 06/04/25 18:30 Methemoglobin 0.8 % (0.4-1.5) 06/04/25 18:30 Total Hemoglobin 18.1 g/dL (12-16) H 06/04/25 18:30 Sodium 119.0 mmol/L (131-143) L 06/04/25 18:30 Potassium 4.9 mmol/L (3.5-5.0) 06/04/25 18:30 Glucose 130.0 mg/dL (70-115) H 06/04/25 18:30 Ionized Calcium 1.1 mmol/L (1.1-1.4) 06/04/25 18:30 O2 Delivery Device Nrb 06/04/25 18:30 O2 Liters/Min 15.0 % 06/04/25 18:30 FiO2 100.0 % 06/04/25 18:30 Dulser ID Gd 06/04/25 18:30 Sodium 123 mmol/L (136-145) L 06/04/25 18:37 Potassium 5.2 mmol/L (3.5-5.1) H 06/04/25 18:37 Chloride 84 mmol/L (98-107) L 06/04/25 18:37 Carbon Dioxide 32 mmol/L (22-29) H 06/04/25 18:37 Anion Gap 12.2 (5-19) 06/04/25 18:37 BUN 14 mg/dL (8-23) 06/04/25 18:37 Creatinine 0.4 mg/dL (0.5-0.9) L 06/04/25 18:37 GFR Calculation 160.2 mL/min (90-130) H 06/04/25 18:37 Glucose 135 mg/dL (65-115) H 06/04/25 18:37 Calculated Osmolality 259 mOsm/kg (285-295) L 06/04/25 18:37 Lactic Acid 1.0 mmol/L (0.5-2.2) 06/04/25 18:37 Calcium 7.7 mg/dL (8.5-10.5) L 06/04/25 18:37 Magnesium 1.8 mg/dL (1.7-2.3) 06/04/25 18:37 Total Bilirubin 0.7 mg/dL (0.15-1.2) 06/04/25 18:37 AST 34 U/L (0-32) H 06/04/25 18:37 ALT 16 U/L (0-33) 06/04/25 18:37 Alkaline Phosphatase 90 U/L (35-105) 06/04/25 18:37 Total Protein 5.7 g/dL (6.6-8.7) L 06/04/25 18:37 Albumin 2.8 g/dL (3.5-5.2) L 06/04/25 18:37 Globulin 2.9 g/dL (1.3-4.6) 06/04/25 18:37 TSH 4.16 uIU/mL (0.27-4.20) 06/04/25 18:37 All radiology interpretation(s) finalized by discharge EKG Data EKG 1: I personally reviewed and interpreted this EKG as follows: Interpretation: EKG 06/04/2025 1842 sinus tachycardia. No acute ST changes noted. No STEMI noted. Rate of 107. NM 119 QTc is 430. Compared to EKG 08/08/2023 Discharge Plan Discharge Patient Disposition: Admitted As Inpatient Admit Provider: Kareem Yin Clinical Impression: Acute on chronic respiratory failure with hypoxia and hypercapnia, Aspiration pneumonia of right lower lobe due to gastric secretions, Acute exacerbation of chronic obstructive airways disease Condition: Stable Coding Level of Care Code ED Comfort Advisor for Sherrie Hayward
[2025-06-04 19:51] LABS: Lactic Sepsis W/Reflex 1.0 mmol/L (0.5-2.2); Magnesium 1.8 mg/dL (1.7-2.3)
[2025-06-04] MEDS: piperacillin-tazobactam 3.375 GM in sodium chloride 0.9% (plus) 50 ML IV (21:24)
--- NOTE | 2025-06-04 21:46 | P.HP_ITS ---
Providers/Chief Complaint 2 Admitting Physician: Kareem Yin MD Primary Care Provider: Amber Allen Chief Complaint: SOB History of Present Illness Carola Reynoso is a 65 year old female accompanied by her daughter Stefanie and granddaughter Edda. Patient has long history of COPD not following with a doctor for at least 2 years and smokes 1/2 pack/day. She has been increasingly short of breath and is not on oxygen at home. She does have Primatene Mist inhaler [id number]. She was suffering at home so decided to come to the hospital. She has had a cough productive of phlegm that she cannot bring up. She lives with her ex- a granddaughter and a grandson. Patient's chest x-ray shows right lower lobe pneumonia and bad emphysema. She was started on Zosyn and Levaquin and referred for admission. Review of Systems 2 Narrative: General No fevers chills she has had weight loss maybe 20 pounds in the last 1 to 2 years but has always been skinny Cardiovascular positive for stent in the heart 6 years ago no ongoing chest pain Respiratory positive for cough dry or moist cough but cannot bring the phlegm up GI negative negative Neuro negative for seizures or stroke symptoms Heme never had a history of blood clots in legs or lungs Malignancy history negative Medications/Allergies Home Medications ?Medication ?Instructions ?Recorded ?Confirmed ?Last Taken ?Type aspirin 81 mg tablet,delayed 81 mg PO QPM 08/08/2306/1908/07/23 History release Allergies Allergy/AdvReac Type Severity Reaction Status Date / Time No Known Allergies Allergy Verified 08/08/23 15:48 PFSH Acute 2 PFSH: Medical History (Updated 06/04/25 @ 21:53 by Kareem Yin MD) CAD (coronary artery disease) Weight loss Fracture, intertrochanteric, left femur Surgical History Stented coronary artery Hx of appendectomy Family History Other Cancer Social History (Updated 06/04/25 @ 21:49 by Kareem Yin MD) Smoking and tobacco/nicotine status: current every day tobacco/nicotine user cigarettes Packs smoked per day: 0.5 Alcohol intake: current Alcohol intake frequency: 0-2 Drinks per Day Substance/Drug Use: never Additional social history: Patient once DNR status and no intubation as discussed with Dr. Cordova and Kareem Yin MD on 06/04/2025. Stefanie and Edda present at the time of my discussion Lives independently: Yes Household members: spouse Marital status: Vitals/I&O/Wt Last Vital Signs Temp 98.6 F 06/04/25 18:30 Pulse 87 06/04/25 21:28 Resp 28 H 06/04/25 18:55 BP 101/60 06/04/25 21:28 Pulse Ox 100 06/04/25 21:28 O2 Del Method BiPAP 06/04/25 21:28 O2 Flow Rate 50 06/04/25 18:55 FiO2 80 06/04/25 18:55 Weight last 48 hrs Weight 45.359 kg Physical Exam 2 Narrative: General Well-developed thin female on BiPAP able to speak through the BiPAP in limited audible fashion CV regular rate and rhythm no loud murmur Lungs very poor air movement minimal breath sounds few inspiratory and expiratory squeaks in the right lower lung Abdomen positive bowel tones soft nontender Calves 2+ bilateral pretibial edema Dorsal pedal pulses diminished bilaterally Skin warm and dry Oropharynx Mallampati 1 dentition is poor there is clear phlegm in the posterior pharynx Data 06/04/25 18:37 06/04/25 18:37 Micro: Microbiology 06/04/25 20:43 Blood Culture - Preliminary Blood SPECIMEN COLLECTED 06/04/25 20:39 Blood Culture - Preliminary Blood SPECIMEN COLLECTED A&P Assessment and plan 1. Pneumonia: Patient mid to the hospital with right lower lobe pneumonia treated with Levaquin and Zosyn due to the severity of her illness. She also be on steroids and nebulizers 2. Acute on chronic respiratory failure with hypoxia and hypercapnia: As above likely will require chronic home O2 if discharged. She does not want intubation. She is placed in the ICU on BiPAP. I counseled her that if she changes her mind regarding intubation she to make that known. In the meantime we will monitor closely on BiPAP 3. Smoking addiction: Start nicotine patch 14 mg daily 4. Weight loss: She has dense atypical infiltrate in her right lower lobe pneumonia cannot exclude a mass PDMP PDMP Reviewed: Not Reviewed Attestations 2 Medical Necessity Statement*: Patient is admitted to ICU with acute respiratory failure and will require greater than 2 midnights in the hospital Coding Level of Care Code Acute Code for Chg Fwd Diagnoses Pneumonia J18.9 Acute on chronic respiratory failure with hypoxia and hypercapnia J96.21; J96.22 Smoking addiction F17.200 Weight loss R63.4 Time Spent (min) 60 Comment [id number]
--- NOTE | 2025-06-04 22:55 | PC.NURSE ---
Patient arrived to ICU 4 at 2222. Cleaned up and placed on bipap. Daughter, Stefanie and granddaughter at bedside, Stefanie phone number is [phone]. Alternate number is [phone] is other daughter Hyacinth phone number.
--- NOTE | 2025-06-04 23:21 | PC.NURSE ---
Attempted to call ED to find out if patient received Levaquin in ED. Waiting on a call back.
[2025-06-04] MEDS: methylPREDNISolone sod succ 40 mg/mL INJ IVP (23:24)
[2025-06-05] VITALS (112 sets, daily range): BP systolic 78–120; BP diastolic 51–81; PULSE 82–102; RESP 10–27; TEMP 36.2–37.1; O2SAT 90–99
[2025-06-05] MEDS: LORazepam 2 mg/mL INJ 1 mL 0.5 MG IVP (00:02)
[2025-06-05] MEDS: morphine 4 mg/mL SDV 1 mL 2 MG IVP (00:02)
[2025-06-05 00:53] LABS: Thyroid Stimulating Hormone 4.16 uIU/mL (0.27-4.20)
[2025-06-05 01:05] LABS: Glucose Urine UA Negative (Normal); Nitrate Urine Negative (Negative); Specific Gravity, Urine 1.022 (1.005-1.030)
[2025-06-05 01:08] LABS: Add Urine Microscopic? YES
[2025-06-05 01:38] LABS: Respiratory Syncytial Virus Ce NEGATIVE (Negative); SARS-CoV-2 PCR NEGATIVE (Negative)
[2025-06-05] MEDS: methylPREDNISolone sod succ 40 mg/mL INJ IVP ×4 (04:10→20:49)
--- NOTE | 2025-06-05 05:30 | PC.NURSE ---
notified of patients decrease in LOC, as well as blood pressures trending downward. gave orders for a 1L fluid bolus. Order placed See AUG.
--- NOTE | 2025-06-05 05:56 | PC.NURSE ---
Daughter Stefanie, called and notified of patients decline. She stated she would notify her family and someone would be in soon to help with guiding in the decision making process.
[2025-06-05 06:18] LABS: Hematocrit 46.3 % (36-47); Hemoglobin 14.90 g/dL (11.27-16.99); Mean Corpuscular HGB Conc 32.2 g/dL (30-55); Mean Corpuscular Hemoglobin 30.5 pg (27-33); Mean Corpuscular Volume 94.7 fl (85-98); Nucleated Red Blood Cells % 0 %; Platelet Count 113 10^3/cmm (157-399); Red Blood Count 4.89 10^6/uL (3.85-5.65); White Blood Count 11.82 10^3/uL (3.29-11.43)
[2025-06-05 06:21] LABS: ABG PH Result 7.19 (7.35-7.45); Alveolar-Arterial Oxygen Gradi 20.0 mmHg (5-10); Arterial Blood Gas Hematocrit 50.8 % (37-47); Blood Gas Operator Identificat SAM; Blood Gas Sample Site Brachial, right; Blood Gas Sample Type Arterial; Carboxyhemoglobin 3.2 %THgb (0.4-20.1); Glucose Level-ABG 125.0 mg/dL (70-115); HCO3 ABG 33.4 mmol/L (22-26); Ionized Calcium Level - ABG 1.1 mmol/L (1.1-1.4); Methemoglobin 0.2 % (0.4-1.5); Oxygen Saturation ABG 95.9; PO2 ABG 94.3 mmHg (80.0-100.0); PO2 FiO2 Ratio Arterial Blood 188; Potassium Level - ABG 4.6 mmol/L (3.5-5.0); Sodium Level - ABG 124.0 mmol/L (131-143)
--- NOTE | 2025-06-05 08:00 | XR_ITS ---
WS: [id number] XR chest 1V portable [id number] REASON FOR EXAM: follow up pneumonia FINDINGS: Poorly positioned examination that is difficult to compare to the previous study. The chest appears unchanged compared to the previous study with cardiomegaly and chronic reticular interstitial lung opacities. Patchy airspace consolidation and pleural effusion in the right hemithorax. XR/XR chest 1V portable [id number] IMPRESSION: Presumed stable abnormal chest.
[2025-06-05] MEDS: piperacillin-tazobactam 3.375 GM in sodium chloride 0.9% (plus) 50 ML IV ×3 (08:13→22:01)
--- NOTE | 2025-06-05 08:25 | PC.PHAR ---
Pt intubated and has only one otc medication on file.
[2025-06-05] MEDS: LORazepam 2 mg/mL INJ 1 mL 0.25 MG IVP (09:25)
[2025-06-05] MEDS: FUROsemide 10 mg/mL SDV 4mL 40 MG IVP (10:10)
[2025-06-05 10:17] LABS: Estmated Average Glucose 137; Hemoglobin A1C 6.4 % (4.0-6.0)
[2025-06-05 10:47] LABS: Iron 13 ug/dL (37-145)
[2025-06-05 10:55] LABS: Alanine Aminotransferase 15 U/L (0-33); Albumin Level 2.7 g/dL (3.5-5.2); Alkaline Phosphatase 84 U/L (35-105); Anion Gap 16.1 (5-19); Aspartate Amino Transferase 24 U/L (0-32); Blood Urea Nitrogen 11 mg/dL (8-23); Calcium 7.4 mg/dL (8.5-10.5); Carbon Dioxide 27 mmol/L (22-29); Chloride 86 mmol/L (98-107); Globulin 2.4 g/dL (1.3-4.6); Glucose 126 mg/dL (65-115); Osmolality Calculated 259 mOsm/kg (285-295); Potassium 5.1 mmol/L (3.5-5.1); Sodium 124 mmol/L (136-145); Total Iron Binding Capacity 271 mcg/dl; Total Protein 5.1 g/dL (6.6-8.7); Unsaturated Iron Binding 258 ug/dL (112-347)
[2025-06-05 11:00] LABS: Procalcitonin 0.49 ng/mL (0-0.5); Vitamin B12 1320 pg/mL (232-1245)
--- NOTE | 2025-06-05 12:17 | P.PN_ITS ---
Subjective 2 Subjective: Admitted overnight for H&P labs appreciated. Seen with multiple family numbers at bedside. Patient on BiPAP. Somnolent. Appreciate hemodynamics. Multiple family members at bedside. Vitals/I&O/Wt Last Vital Signs Temp 97.2 F L 06/05/25 08:15 Pulse 89 06/05/25 12:15 Resp 18 06/05/25 12:15 BP 88/62 06/05/25 12:15 Pulse Ox 93 06/05/25 12:15 O2 Del Method BiPAP 06/05/25 12:15 O2 Flow Rate 50 06/04/25 18:55 FiO2 35 06/05/25 12:15 06/04/25 06/05/25 06/05/25 22:59 06:59 14:59 Intake Total 100 / 100 2360.77 / 2460.77 Output Total 650 / 650 Balance 100 / 100 1710.77 / 1810.77 Weight last 48 hrs Weight 45.8 kg Weight 45.2 kg Weight 45.359 kg Physical Exam 2 Narrative: General Well-developed thin female, somnolent CV regular rate and rhythm no loud murmur Lungs: Bronchial breath sounds over lower lung everett with occasional rhonchi, coarse crackles present in right lower zone, decreased air entry all over lung everett Abdomen positive bowel tones soft nontender Calves 2+ bilateral pretibial edema Dorsal pedal pulses diminished bilaterally Skin warm and dry Extremity: Bilateral 1+ pedal edema going up to knee Urinary Catheter Management: Scott: Cath Placed During This Visit: yes Reason for Continuing Indwelling Catheter: Accurate Measurement of Urinary Output in Critically Ill Patients Urinary Catheter Date of Insertion: 06/05/25 Urinary Catheter Time of Insertion: 00:15 Data 06/05/25 05:45 06/05/25 10:06 Micro: Microbiology 06/04/25 20:43 Blood Culture - Preliminary Blood SPECIMEN COLLECTED 06/04/25 20:39 Blood Culture - Preliminary Blood SPECIMEN COLLECTED A&P Assessment and plan 1. Aspiration pneumonia of right lower lobe due to gastric secretions: Patient mid to the hospital with right lower lobe pneumonia treated with Levaquin and Zosyn due to the severity of her illness. She also be on steroids and nebulizers 2. Acute on chronic respiratory failure with hypoxia and hypercapnia: As above likely will require chronic home O2 if discharged. She does not want intubation. She is placed in the ICU on BiPAP. I counseled her that if she changes her mind regarding intubation she to make that known. In the meantime we will monitor closely on BiPAP 3. Smoking addiction: Start nicotine patch 14 mg daily 4. Weight loss: She has dense atypical infiltrate in her right lower lobe pneumonia cannot exclude a mass 5. Goals of care, counseling/discussion: 6. Respiratory acidosis: 7. Somnolence: Plan: Plan for the day: 65-year-old with history of COPD not usually on supplemental oxygen presented to the ER with worsening difficulty in breathing and mentation for last 1 week found to have hypercapnic respiratory failure with respiratory acidosis. Placed on BiPAP as patient is DNR/DNI. Plan for the day: Switch over to AVAPS mode. Repeat ABG in 5 to 6 hours. Check respiratory viral panel. DC IV fluids. IV Lasix 40 mg one-time. Follow-up sputum culture, blood culture. Continue with IV vancomycin and Zosyn for now. Concern for aspiration pneumonia. Check MRSA swab. If negative will discontinue vancomycin. Change DuoNeb to every 4 hours, add Pulmicort twice daily. Continue with Solu-Medrol 40 mg Q6 hourly. Strict input output charting, daily weights. Extensive goals of care discussion with family at bedside. Family considering and asking about hospice. We discussed patient does have significant COPD and is on very high support of BiPAP. We discussed we can try AVAPS which is the highest mode of BiPAP for now and if she does not improve with next 10 to 12 hours with her mentation, respiratory acidosis or hypercapnia then possibly transitioning to comfort care if possible. Family verbalized understanding and are agreeable for trial of AVAPS to see if her numbers and mentation improve otherwise if they would want to transition to hospice care/comfort care. NPO. DNR/DNI Lovenox for DVT prophylaxis Famotidine for PUD prophylaxis. PDMP PDMP Reviewed: Not Reviewed Attestations 2 Medical Necessity Statement*: Requested hospitalization for management of hypercapnic respiratory acidosis, respiratory failure, altered mental status in the patient COPD exacerbation, right lower lobe pneumonia Diagnoses Aspiration pneumonia of right lower lobe due to gastric secretions J69.0 Pneumonia type: aspiration pneumonia Laterality: right Lung location: lower lobe of lung Aspiration pneumonia type: due to gastric secretions Acute on chronic respiratory failure with hypoxia and hypercapnia J96.21; J96.22 Smoking addiction F17.200 Weight loss R63.4 Goals of care, counseling/discussion Z71.89 Respiratory acidosis E87.29 Somnolence R40.0
[2025-06-05 12:30] LABS: Coronavirus 229E,HKU1,NL63,OC4 Not Detected (NOT DETECT); Parainfluenza Virus Type 1 Not Detected (NOT DETECT); Parainfluenza Virus Type 2 Not Detected (NOT DETECT); Parainfluenza Virus Type 3 Not Detected (NOT DETECT); Parainfluenza Virus Type 4 Not Detected (NOT DETECT); SARS-COV-2 Not Detected (NOT DETECT)
--- NOTE | 2025-06-05 13:24 | PC.NURSE ---
Dr. Jara ordered to give albumin to the patient for low blood pressures. Next of kin stated that the patient did not want any blood and that they wanted to respect their wishes. No albumin was given and Dr. Jara was contacted. Dr. Jara said okay and is wanting to draw an ABG stat.
--- NOTE | 2025-06-05 13:33 | PHA.VACGOAL ---
Vancomycin Goal - Goal Vancomycin Goal:: 15-20 mg/L Vancomycin Indication:: Pneumonia - Therapy Day of therpy:: Day []of [] . Actual body weight (kg): 45.8 kg - Data Labs: WBC 11.82 10^3/uL (3.29-11.43) H 06/05/25 05:45 RBC 4.89 10^6/uL (3.85-5.65) 06/05/25 05:45 Hgb 14.90 g/dL (11.27-16.99) 06/05/25 05:45 Hct 46.3 % (36-47) 06/05/25 05:45 MCV 94.7 fl (85-98) 06/05/25 05:45 MCH 30.5 pg (27-33) 06/05/25 05:45 MCHC 32.2 g/dL (30-55) 06/05/25 05:45 RDW 13.7 % (12.1-15.1) 06/05/25 05:45 Sodium 124 mmol/L (136-145) L 06/05/25 10:06 Potassium 5.1 mmol/L (3.5-5.1) 06/05/25 10:06 Chloride 86 mmol/L (98-107) L 06/05/25 10:06 Carbon Dioxide 27 mmol/L (22-29) 06/05/25 10:06 Anion Gap 16.1 (5-19) 06/05/25 10:06 BUN 11 mg/dL (8-23) 06/05/25 10:06 Creatinine 0.4 mg/dL (0.5-0.9) L 06/05/25 10:06 GFR Calculation 160.2 mL/min (90-130) H 06/05/25 10:06 Treatment plan:: new consult Regimen:: 1000 mg once 500 mg q12h TROUGH PRIOR TO 4TH DOSE
[2025-06-05 13:42] LABS: ABG PH Result 7.32 (7.35-7.45); Alveolar-Arterial Oxygen Gradi 22.9 mmHg (5-10); Arterial Blood Gas Hematocrit 52.4 % (37-47); Blood Gas Operator Identificat GD; Blood Gas Sample Site Brachial, left; Blood Gas Sample Type Arterial; Carboxyhemoglobin 2.2 %THgb (0.4-20.1); Glucose Level-ABG 121.0 mg/dL (70-115); HCO3 ABG 35.0 mmol/L (22-26); Ionized Calcium Level - ABG 1.0 mmol/L (1.1-1.4); Methemoglobin 1.0 % (0.4-1.5); Oxygen Saturation ABG 97.6; PO2 ABG 97.8 mmHg (80.0-100.0); PO2 FiO2 Ratio Arterial Blood 195; Potassium Level - ABG 3.9 mmol/L (3.5-5.0); Sodium Level - ABG 126.0 mmol/L (131-143)
[2025-06-05 13:43] LABS: Blood Gas Tidal Volume 0.45; PEEP 10.0 cmH20
[2025-06-05 13:46] LABS: ABG PCO2 67.4 mmHg (35-45)
[2025-06-05 13:47] LABS: ABG PCO2 88.5 mmHg (35-45)
[2025-06-05 22:03] LABS: Anion Gap 11.1 (5-19); Blood Urea Nitrogen 11 mg/dL (8-23); Calcium 7.6 mg/dL (8.5-10.5); Carbon Dioxide 34 mmol/L (22-29); Chloride 88 mmol/L (98-107); Glucose 122 mg/dL (65-115); Magnesium 1.7 mg/dL (1.7-2.3); Osmolality Calculated 269 mOsm/kg (285-295); Potassium 4.1 mmol/L (3.5-5.1); Sodium 129 mmol/L (136-145)
--- NOTE | 2025-06-05 23:28 | PC.NURSE ---
notified bolus is complete. Gave orders to continue NS @ 100ml/hr. Order updated.
[2025-06-06] VITALS (49 sets, daily range): BP systolic 88–115; BP diastolic 52–64; PULSE 78–121; RESP 17–32; TEMP 36.6–36.8; O2SAT 81–97; BMI 16.7
[2025-06-06] MEDS: vancomycin 500 MG in sodium chloride 0.9% (plus) 100 ML 200 MG IV (00:22)
[2025-06-06] MEDS: LORazepam 2 mg/mL INJ 1 mL 0.25 MG IVP (01:22)
[2025-06-06] MEDS: methylPREDNISolone sod succ 40 mg/mL INJ IVP (03:14)
[2025-06-06] MEDS: piperacillin-tazobactam 3.375 GM in sodium chloride 0.9% (plus) 50 ML IV (05:54)
[2025-06-06 06:00] LABS: Hematocrit 48.6 % (36-47); Hemoglobin 15.50 g/dL (11.27-16.99); Mean Corpuscular HGB Conc 31.9 g/dL (30-55); Mean Corpuscular Hemoglobin 29.9 pg (27-33); Mean Corpuscular Volume 93.8 fl (85-98); Nucleated Red Blood Cells % 0 %; Platelet Count 118 10^3/cmm (157-399); Red Blood Count 5.18 10^6/uL (3.85-5.65); White Blood Count 10.43 10^3/uL (3.29-11.43)
[2025-06-06 06:28] LABS: Cholesterol 119 mg/dL (0-200); HDL Cholesterol 39 mg/dL (60-100); Triglycerides 109 mg/dL (0-150); VLDL Cholestrol Calculation 22 mg/dL (0-30)
[2025-06-06 06:29] LABS: Alanine Aminotransferase 14 U/L (0-33); Albumin Level 2.4 g/dL (3.5-5.2); Alkaline Phosphatase 70 U/L (35-105); Anion Gap 11.8 (5-19); Aspartate Amino Transferase 27 U/L (0-32); Blood Urea Nitrogen 10 mg/dL (8-23); Calcium 7.5 mg/dL (8.5-10.5); Carbon Dioxide 31 mmol/L (22-29); Chloride 91 mmol/L (98-107); Creatinine Clr Calc Pharmacy 50.6038; Globulin 2.8 g/dL (1.3-4.6); Glucose 109 mg/dL (65-115); Magnesium 1.9 mg/dL (1.7-2.3); Osmolality Calculated 270 mOsm/kg (285-295); Potassium 3.8 mmol/L (3.5-5.1); Sodium 130 mmol/L (136-145); Total Protein 5.2 g/dL (6.6-8.7)
[2025-06-06 08:53] LABS: ABG PH Result 7.34 (7.35-7.45); Alveolar-Arterial Oxygen Gradi 12.5 mmHg (5-10); Arterial Blood Gas Hematocrit 48.2 % (37-47); Blood Gas Operator Identificat GD; Blood Gas Sample Site Brachial, left; Blood Gas Sample Type Arterial; Blood Gas Tidal Volume 0.45; Carboxyhemoglobin 1.9 %THgb (0.4-20.1); Glucose Level-ABG 99.0 mg/dL (70-115); HCO3 ABG 35.7 mmol/L (22-26); Ionized Calcium Level - ABG 1.1 mmol/L (1.1-1.4); Methemoglobin 0.1 % (0.4-1.5); Oxygen Saturation ABG 94.9; PEEP 10.0 cmH20; PO2 ABG 73.7 mmHg (80.0-100.0); PO2 FiO2 Ratio Arterial Blood 210; Potassium Level - ABG 3.7 mmol/L (3.5-5.0); Sodium Level - ABG 131.0 mmol/L (131-143)
[2025-06-06 08:54] LABS: ABG PCO2 66.3 mmHg (35-45)
--- NOTE | 2025-06-06 12:11 | P.PN_ITS ---
Subjective 2 Subjective: Overnight patient did have episode of hypotension for which she was given few fluid boluses. She continues to remain somnolent. Minimally responsive to verbal and physical stimulus. Saturating more than 90% on AVAPS mode. Vitals/I&O/Wt Last Vital Signs Temp 97.8 F 06/06/25 05:38 Pulse 81 06/06/25 11:19 Resp 24 H 06/06/25 11:00 BP 109/61 06/06/25 11:00 Pulse Ox 96 06/06/25 11:19 O2 Del Method BiPAP 06/06/25 07:30 O2 Flow Rate 50 06/04/25 18:55 FiO2 35 06/06/25 11:19 06/05/25 06/06/25 06/06/25 22:59 06:59 14:59 Intake Total 1300 / 1750 1750 / 3500 Output Total 1200 / 1925 Balance 1300 / 1025 550 / 1575 Weight last 48 hrs Weight 45.722 kg Weight 45.8 kg Weight 45.2 kg Weight 45.359 kg Physical Exam 2 Narrative: General Well-developed thin female, somnolent CV regular rate and rhythm no loud murmur Lungs: Bronchial breath sounds over lower lung everett with occasional rhonchi, coarse crackles present in right lower zone, decreased air entry all over lung everett Abdomen positive bowel tones soft nontender Calves 2+ bilateral pretibial edema Dorsal pedal pulses diminished bilaterally Skin warm and dry Extremity: Bilateral 1+ pedal edema going up to knee Urinary Catheter Management: Scott: Cath Placed During This Visit: yes Reason for Continuing Indwelling Catheter: Accurate Measurement of Urinary Output in Critically Ill Patients Urinary Catheter Date of Insertion: 06/05/25 Urinary Catheter Time of Insertion: 00:15 Data 06/06/25 05:31 06/06/25 05:31 Micro: Microbiology 06/04/25 20:43 Blood Culture - Preliminary Blood NEGATIVE TO DATE 06/04/25 20:39 Blood Culture - Preliminary Blood NEGATIVE TO DATE A&P Assessment and plan 1. Acute on chronic respiratory failure with hypoxia and hypercapnia: As above likely will require chronic home O2 if discharged. She does not want intubation. She is placed in the ICU on BiPAP. I counseled her that if she changes her mind regarding intubation she to make that known. In the meantime we will monitor closely on BiPAP 2. Acute exacerbation of chronic obstructive airways disease: 3. Respiratory acidosis: 4. Aspiration pneumonia of right lower lobe due to gastric secretions: Patient mid to the hospital with right lower lobe pneumonia treated with Levaquin and Zosyn due to the severity of her illness. She also be on steroids and nebulizers 5. Smoking addiction: Start nicotine patch 14 mg daily 6. Weight loss: She has dense atypical infiltrate in her right lower lobe pneumonia cannot exclude a mass 7. Goals of care, counseling/discussion: 8. Somnolence: 9. Protein-energy malnutrition: Plan: 65-year-old with history of COPD not usually on supplemental oxygen presented to the ER with worsening difficulty in breathing and mentation for last 1 week found to have hypercapnic respiratory failure with respiratory acidosis. Placed on BiPAP as patient is DNR/DNI. Plan for the day: Patient's ABG has improved on AVAPS mode in last 24 hours. Respiratory acidosis has improved with pH improving up to 7.34. pCO2 improving. Even after improvement in hypercapnia and respiratory acidosis patient continues to remain somnolent, minimally responsive to verbal and physical stimulus. Having episodes of hypotension. Concerns for septic shock. Further goals of care discussion were done with daughter at bedside. We discussed even after being on AVAPS mode, even though her hypercapnia has resolved but her mentation continues to remain poor. Given her baseline physical and mental status, cachexia with a BMI of 16.8 it is possible that her mentation might improve very gradually in next 48 hours though it would be difficult for her to have appropriate nutrition. Further discussed there is a concern for septic shock for which she might require vasopressors. Daughter verbalized understanding and stated in the past patient had wished for DNR and DNI and would not want any aggressive measures. She states that given her baseline health family and patient's DPOA/daughters would want to go ahead and set up hospice. We discussed hospice would mean to change from BiPAP more to nasal cannula, stop active treatment with concentrations of goal to be transition to comfort which could mean that she could . Daughter verbalized understanding and was supplied with comfort care measures. Comfort care measures placed. Stop IV antibiotics, steroids, change nebulization to as needed. No further blood work. Vitals as per protocol. Morphine and Ativan as needed. Case management alerted for hospice care. PDMP PDMP Reviewed: Not Reviewed Attestations 2 Medical Necessity Statement*: Requested hospitalization for management of hypercapnic respiratory acidosis, respiratory failure, altered mental status in the patient COPD exacerbation, right lower lobe pneumonia while hospice care is set up Diagnoses Acute on chronic respiratory failure with hypoxia and hypercapnia J96.21; J96.22 Acute exacerbation of chronic obstructive airways disease J44.1 Respiratory acidosis E87.29 Aspiration pneumonia of right lower lobe due to gastric secretions J69.0 Aspiration pneumonia type: due to gastric secretions Laterality: right Lung location: lower lobe of lung Pneumonia type: aspiration pneumonia Smoking addiction F17.200 Weight loss R63.4 Goals of care, counseling/discussion Z71.89 Somnolence R40.0 Protein-energy malnutrition E46
--- NOTE | 2025-06-06 15:17 | PC.NURSE ---
Refusal Patient refused to let me to do a nursing shift assessment. Large amt of family at bedside. Patient lying in bed, denies pain at this time.
[2025-06-07 09:16] VITALS: O2SAT 88
[2025-06-07 09:17] VITALS: PULSE 80; RESP 20; O2SAT 88
--- NOTE | 2025-06-07 11:15 | P.PN_ITS ---
Subjective 2 Subjective: Overnight patient did have episode of hypotension for which she was given few fluid boluses. She continues to remain somnolent. Minimally responsive to verbal and physical stimulus. Saturating more than 90% on AVAPS mode. Vitals/I&O/Wt Last Vital Signs Temp 97.9 F 06/06/25 20:00 Pulse 80 06/07/25 09:17 Resp 20 H 06/07/25 09:17 BP 111/61 06/06/25 14:00 Pulse Ox 88 L 06/07/25 09:17 O2 Del Method Nasal Cannula 06/07/25 09:17 O2 Flow Rate 2 06/07/25 09:17 FiO2 35 06/06/25 11:19 06/06/25 06/07/25 06/07/25 22:59 06:59 14:59 Output Total 300 / 300 250 / 550 Balance -300 / -300 -250 / -550 Weight last 48 hrs Weight 45.359 kg Weight 45.722 kg Physical Exam 2 Narrative: General Well-developed thin female, somnolent CV regular rate and rhythm no loud murmur Lungs: Bronchial breath sounds over lower lung everett with occasional rhonchi, coarse crackles present in right lower zone, decreased air entry all over lung everett Abdomen positive bowel tones soft nontender Calves 2+ bilateral pretibial edema Dorsal pedal pulses diminished bilaterally Skin warm and dry Extremity: Bilateral 1+ pedal edema going up to knee Urinary Catheter Management: Scott: Cath Placed During This Visit: yes Reason for Continuing Indwelling Catheter: Other Urinary Catheter Date of Insertion: 06/05/25 Urinary Catheter Time of Insertion: 00:15 Data 06/06/25 05:31 06/06/25 05:31 A&P Assessment and plan 1. Acute on chronic respiratory failure with hypoxia and hypercapnia: As above likely will require chronic home O2 if discharged. She does not want intubation. She is placed in the ICU on BiPAP. I counseled her that if she changes her mind regarding intubation she to make that known. In the meantime we will monitor closely on BiPAP 2. Acute exacerbation of chronic obstructive airways disease: 3. Respiratory acidosis: 4. Aspiration pneumonia of right lower lobe due to gastric secretions: Patient mid to the hospital with right lower lobe pneumonia treated with Levaquin and Zosyn due to the severity of her illness. She also be on steroids and nebulizers 5. Smoking addiction: Start nicotine patch 14 mg daily 6. Weight loss: She has dense atypical infiltrate in her right lower lobe pneumonia cannot exclude a mass 7. Goals of care, counseling/discussion: 8. Somnolence: 9. Protein-energy malnutrition: Plan: 65-year-old with history of COPD not usually on supplemental oxygen presented to the ER with worsening difficulty in breathing and mentation for last 1 week found to have hypercapnic respiratory failure with respiratory acidosis. Placed on BiPAP as patient is DNR/DNI. Plan for the day: Because of persistent altered mental status, severe hypercapnia patient was transition to hospice care yesterday. Patient wanted to be discharged yesterday evening but could not go home as family could not afford [id number] oxygen. She has been comfortable overnight. Plan to discharge today once comfort care/hospice is set up as an outpatient. Continue with comfort care measures while inpatient. PDMP PDMP Reviewed: Not Reviewed Attestations 2 Medical Necessity Statement*: Requires further hospitalization while outpatient hospice is set up Diagnoses Acute on chronic respiratory failure with hypoxia and hypercapnia J96.21; J96.22 Acute exacerbation of chronic obstructive airways disease J44.1 Respiratory acidosis E87.29 Aspiration pneumonia of right lower lobe due to gastric secretions J69.0 Aspiration pneumonia type: due to gastric secretions Laterality: right Lung location: lower lobe of lung Pneumonia type: aspiration pneumonia Smoking addiction F17.200 Weight loss R63.4 Goals of care, counseling/discussion Z71.89 Somnolence R40.0 Protein-energy malnutrition E46
[2025-06-07 14:11] VITALS: BP 111/61; PULSE 80; RESP 18; TEMP 36.6; O2SAT 88
--- NOTE | 2025-06-12 19:24 | PM.DCS ---
Discharge Providers Date of Admission: 06/04/25 20:02 Date of Discharge: June 12, 2025 Attending Provider at Admission: Kareem Yin MD Attending Provider at Discharge: Ion Jara MD Primary Care Provider: Amber Allen Diagnoses at Discharge Discharge Diagnosis 1. Acute on chronic respiratory failure with hypoxia and hypercapnia: 2. Acute exacerbation of chronic obstructive airways disease: 3. Respiratory acidosis: 4. Aspiration pneumonia of right lower lobe due to gastric secretions: 5. Smoking addiction: 6. Weight loss: 7. Goals of care, counseling/discussion: 8. Somnolence: 9. Protein-energy malnutrition: Reason for Visit Reason for Visit: SOB Brief History: Carola Reynoso is a 65 year old female accompanied by her daughter Stefanie and granddaughter Edda. Patient has long history of COPD not following with a doctor for at least 2 years and smokes 1/2 pack/day. She has been increasingly short of breath and is not on oxygen at home. She does have Primatene Mist inhaler [id number]. She was suffering at home so decided to come to the hospital. She has had a cough productive of phlegm that she cannot bring up. She lives with her ex- a granddaughter and a grandson. Patient's chest x-ray shows right lower lobe pneumonia and bad emphysema. She was started on Zosyn and Levaquin and referred for admission. Hospital Course Hospital Course She was admitted somnolent due to respiratory failure with hypercapnia and hypoxia. Placed on AVAPS mode. Her mental state didnt improve while being on AVAPS for more than 24 hrs. Multiple GOC were done. We discussed even after being on AVAPS mode, even though her hypercapnia has resolved but her mentation continues to remain poor. Given her baseline physical and mental status, cachexia with a BMI of 16.8 it is possible that her mentation might improve very gradually in next 48 hours though it would be difficult for her to have appropriate nutrition. Further discussed there is a concern for septic shock for which she might require vasopressors. Daughter verbalized understanding and stated in the past patient had wished for DNR and DNI and would not want any aggressive measures. She states that given her baseline health family and patient's DPOA/daughters would want to go ahead and set up hospice. We discussed hospice would mean to change from BiPAP more to nasal cannula, stop active treatment with concentrations of goal to be transition to comfort which could mean that she could . Daughter verbalized understanding and was supplied with comfort care measures. Eventually, patient was dced in comfort care status on 06/07/25. Physical Exam Narrative: General Well-developed thin female, somnolent CV regular rate and rhythm no loud murmur Lungs: Bronchial breath sounds over lower lung [place] with occasional rhonchi, coarse crackles present in right lower zone, decreased air entry all over lung [place] Abdomen positive bowel tones soft nontender Calves 2+ bilateral pretibial edema Dorsal pedal pulses diminished bilaterally Skin warm and dry Extremity: Bilateral 1+ pedal edema going up to knee Urinary Catheter Management: Scott: Cath Placed During This Visit: yes Reason for Continuing Indwelling Catheter: Other Urinary Catheter Date of Insertion: 06/05/25 Urinary Catheter Time of Insertion: 00:15 Discharge Data Studies Completed and Pending Completed Studies During Hospitalization Category Date Time Status XR chest 1V portable [id number] Routine Exams 06/05/25 08:00 Completed XR chest 1V portable [id number] Stat Exams 06/04/25 18:31 Completed Radiology Impressions Chest X-Ray 06/05/25 08:00 IMPRESSION: Presumed stable abnormal chest. Laboratory Results WBC 10.43 10^3/uL (3.29-11.43) 06/06/25 05:31 RBC 5.18 10^6/uL (3.85-5.65) 06/06/25 05:31 Hgb 15.50 g/dL (11.27-16.99) 06/06/25 05:31 Hct 48.6 % (36-47) H 06/06/25 05:31 MCV 93.8 fl (85-98) 06/06/25 05:31 MCH 29.9 pg (27-33) 06/06/25 05:31 MCHC 31.9 g/dL (30-55) 06/06/25 05:31 RDW 13.9 % (12.1-15.1) 06/06/25 05:31 Plt Count 118 10^3/cmm (157-399) L 06/06/25 05:31 MPV 9.6 fL (7.4-10.4) 06/06/25 05:31 Neut % (Auto) 92.3 % 06/06/25 05:31 Lymph % (Auto) 2.1 % 06/06/25 05:31 Archuleta % (Auto) 4.7 % 06/06/25 05:31 Eos % (Auto) 0.0 % 06/06/25 05:31 Baso % (Auto) 0.1 % 06/06/25 05:31 Neut # (Auto) 9.63 10^3/uL (1.8-7.7) H 06/06/25 05:31 Lymph # (Auto) 0.2 10^3/uL (0.8-4.8) L 06/06/25 05:31 [place]ta # (Auto) 0.5 10^3/uL (0.2-0.9) 06/06/25 05:31 Eos # (Auto) 0.0 10^3/uL (0.0-0.8) 06/06/25 05:31 Baso # (Auto) 0.0 10^3/uL (0.0-0.1) 06/06/25 05:31 Nucleated RBC % (auto) 0 % 06/06/25 05:31 Nucleated RBCs # 0.0 /100WBC 06/06/25 05:31 Specimen Type Arterial 06/06/25 08:35 Sample Site Brachial, left 06/06/25 08:35 ABG pH 7.34 (7.35-7.45) L 06/06/25 08:35 ABG pCO2 66.3 mmHg (35-45) H* 06/06/25 08:35 ABG pO2 73.7 mmHg (80.0-100.0) L 06/06/25 08:35 ABG PO2/FiO2 Ratio 210 06/06/25 08:35 ABG HCO3 35.7 mmol/L (22-26) H 06/06/25 08:35 ABG O2 Saturation 94.9 06/06/25 08:35 ABG Base Excess 7.1 mmol/L (-2.0-2.0) H 06/06/25 08:35 Aime Test N/a 06/06/25 08:35 A-a O2 Gradient 12.5 mmHg (5-10) H 06/06/25 08:35 Hematocrit 48.2 % (37-47) H 06/06/25 08:35 Hgb O2 Saturation 93.1 % (95-100) L 06/06/25 08:35 Carboxyhemoglobin 1.9 %THgb (0.4-20.1) 06/06/25 08:35 Methemoglobin 0.1 % (0.4-1.5) L 06/06/25 08:35 Total Hemoglobin 15.7 g/dL (12-16) 06/06/25 08:35 Sodium 131.0 mmol/L (131-143) 06/06/25 08:35 Potassium 3.7 mmol/L (3.5-5.0) 06/06/25 08:35 Glucose 99.0 mg/dL (70-115) 06/06/25 08:35 Ionized Calcium 1.1 mmol/L (1.1-1.4) 06/06/25 08:35 O2 Delivery Device Bipap 06/06/25 08:35 O2 Liters/Min 15.0 % 06/04/25 18:30 FiO2 35.0 % 06/06/25 08:35 Tidal Volume 0.45 06/06/25 08:35 PEEP 10.0 cmH20 06/06/25 08:35 Nuclear Waste Process Operator ID Gd 06/06/25 08:35 Sodium 130 mmol/L (136-145) L 06/06/25 05:31 Potassium 3.8 mmol/L (3.5-5.1) 06/06/25 05:31 Chloride 91 mmol/L (98-107) L 06/06/25 05:31 Carbon Dioxide 31 mmol/L (22-29) H 06/06/25 05:31 Anion Gap 11.8 (5-19) 06/06/25 05:31 BUN 10 mg/dL (8-23) 06/06/25 05:31 Creatinine 0.4 mg/dL (0.5-0.9) L 06/06/25 05:31 GFR Calculation 160.2 mL/min (90-130) H 06/06/25 05:31 Glucose 109 mg/dL (65-115) 06/06/25 05:31 Estimat Average Glucose 137 06/05/25 05:45 Hemoglobin A1c 6.4 % (4.0-6.0) H 06/05/25 05:45 Calculated Osmolality 270 mOsm/kg (285-295) L 06/06/25 05:31 Lactic Acid 1.0 mmol/L (0.5-2.2) 06/04/25 18:37 Calcium 7.5 mg/dL (8.5-10.5) L 06/06/25 05:31 Phosphorus 4.1 mg/dL (2.5-4.5) 06/05/25 21:16 Magnesium 1.9 mg/dL (1.7-2.3) 06/06/25 05:31 Iron 13 ug/dL (37-145) L 06/05/25 10:06 TIBC 271 mcg/dl 06/05/25 10:06 % Saturation 4.7 % (20-50) L 06/05/25 10:06 Unsat Iron Binding 258 ug/dL (112-347) 06/05/25 10:06 Total Bilirubin 0.5 mg/dL (0.15-1.2) 06/06/25 05:31 AST 27 U/L (0-32) 06/06/25 05:31 ALT 14 U/L (0-33) 06/06/25 05:31 Alkaline Phosphatase 70 U/L (35-105) 06/06/25 05:31 Total Protein 5.2 g/dL (6.6-8.7) L 06/06/25 05:31 Albumin 2.4 g/dL (3.5-5.2) L 06/06/25 05:31 Globulin 2.8 g/dL (1.3-4.6) 06/06/25 05:31 Triglycerides 109 mg/dL (0-150) 06/06/25 05:31 Cholesterol 119 mg/dL (0-200) 06/06/25 05:31 LDL Cholesterol, Calc 58 mg/dL (50-129) 06/06/25 05:31 Total VLDL Cholesterol 22 mg/dL (0-30) 06/06/25 05:31 HDL Cholesterol 39 mg/dL (60-100) L 06/06/25 05:31 Cholesterol/HDL Ratio 3.05 mg/dL (0.0-4.40) 06/06/25 05:31 Vitamin B12 1320 pg/mL (232-1245) H 06/05/25 10:06 Folate 10.5 ng/mL (4.8-37.3) 06/06/25 05:31 Procalcitonin 0.49 ng/mL (0-0.5) 06/05/25 10:06 TSH 4.16 uIU/mL (0.27-4.20) 06/04/25 18:37 Urine Color Dark yellow (Yellow) A 06/05/25 00:20 Urine Appearance Clear (CLEAR) 06/05/25 00:20 Urine pH 5.5 (5-7) 06/05/25 00:20 Ur Specific [place] 1.022 (1.005-1.030) 06/05/25 00:20 Urine Protein Trace (Negative) A 06/05/25 00:20 Urine Glucose (UA) Negative (Normal) 06/05/25 00:20 Urine Ketones Negative (Negative) 06/05/25 0020 Urine Blood Negative (Negative) 06/05/25 00:20 Urine Nitrate Negative (Negative) 06/05/25 00:20 Urine Bilirubin Negative (Negative) 06/05/25 00:20 Urine Urobilinogen 1.0 mg/dL (Negative) 06/05/25 00:20 Ur Leukocyte Esterase Negative (Negative) 06/05/25 00:20 Urine RBC 0-2 /hpf (0-2) 06/05/25 00:20 Urine WBC 0-5 /hpf (0-5) 06/05/25 00:20 Ur Squamous Epith Cells 0-5 /hpf (0-5) 06/05/25 00:20 Amorphous Sediment Not Reportable 06/05/25 00:20 Urine Bacteria None seen /hpf (NONE) 06/05/25 00:20 Hyaline Casts 4.52 /lpf 06/05/25 00:20 Adenovirus (PCR) Not detected (NOT DETECT) 06/05/25 10:21 C. pneumoniae DNA (PCR) Not detected (NOT DETECT) 06/05/25 10: Coronavirus 229E (PCR) Not detected (NOT DETECT) 06/05/25 10: Human Metapneumovir PCR Not detected (NOT DETECT) 06/05/25 10:21 Influenza A (H1) PCR Not detected (NOT DETECT) 06/05/25 10:21 Influenza A (PCR) Negative (Negative) 06/05/25 00:20 Influ A (H1/09) PCR Not detected (NOT DETECT) 06/05/25 10:21 Influenza A (H3) PCR Not detected (NOT DETECT) 06/05/25 10:21 Influenza Type A (PCR) Not detected (NOT DETECT) 06/05/25 10:21 Influenza Type B (PCR) Not detected (NOT DETECT) 06/05/25 10:21 M. pneumoniae (PCR) Not detected (NOT DETECT) 06/05/25 10:21 Parainfluenza 1 (PCR) Not detected (NOT DETECT) 06/05/25 10:21 Parainfluenza 2 (PCR) Not detected (NOT DETECT) 06/05/25 10:21 Parainfluenza 3 (PCR) Not detected (NOT DETECT) 06/05/25 10:21 Parainfluenza 4 (PCR) Not detected (NOT DETECT) 06/05/25 10:21 RSV (PCR) Negative (Negative) 06/05/25 00:20 RSV Type A (PCR) Not detected (NOT DETECT) 06/05/25 10:21 RSV Type B (PCR) Not detected (NOT DETECT) 06/05/25 10:21 Entero/Rhino (PCR) Not detected (NOT DETECT) 06/05/25 10:21 SARS-CoV-2 (PCR) Not detected (NOT DETECT) 06/05/25 10:21 Vitals Last Vital Signs Temp 97.9 F 06/07/25 14:11 Pulse 80 06/07/25 14:11 Resp 18 06/07/25 14:11 BP 111/61 06/07/25 14:11 Pulse Ox 88 L 06/07/25 14:11 O2 Del Method Nasal Cannula 06/07/25 09:17 O2 Flow Rate 2 06/07/25 09:17 FiO2 35 06/06/25 11:19 Discharge Plan Discharge Patient Disposition: Hospice - Home Condition: Stable Prescriptions: New albuterol sulfate 2.5 mg /3 mL (0.083 %) Solution For Nebulization 2.5 mg inhalation Q4H.RESPIRATORY PRN (Reason: Shortness Of Breath) Qty: 180 0RF Continued aspirin 81 mg Tablet,Delayed Release (Dr/Ec) 81 mg PO QPM Discharge Order = DC NOW: Discharge Order (Routine); Ordered 06/06/25 Ordered By: Ion Jara Other Ambulatory Orders: DME: Oxygen (Order) Location: None Selected Ordered By: Ion Jara Referrals: [facility] [Outside] Amber Allen BIOLOGICAL SCIENCE TECHNICIAN [Primary Care Provider, Nurse Practitioner] Referral Note: Patient Instructions: Albuterol (By breathing), Hospice Care, COPD (Chronic Obstructive Pulmonary Disease) (DC), Opioid Safety, Patient Portal & Isaías Instructions Discharge Attestations Time Spent in Discharge Care*: less than 30 min Quality Metrics Clinical Quality Measures [ No reported AMI, CVA or VTE this stay] Coding Level of Care Code Acute Code for Chg Fwd Diagnoses Acute on chronic respiratory failure with hypoxia and hypercapnia J96.21; J96.22 Acute exacerbation of chronic obstructive airways disease J44.1 Respiratory acidosis E87.29 Aspiration pneumonia of right lower lobe due to gastric secretions J69.0 Pneumonia type: aspiration pneumonia Aspiration pneumonia type: due to gastric secretions Laterality: right Lung location: lower lobe of lung Smoking addiction F17.200 Weight loss R63.4 Goals of care, counseling/discussion Z71.89 Somnolence R40.0 Protein-energy malnutrition E46
== END 2025-06-07 13:50 | disposition hospice, home (50) | DRG 177 ==
LOC: ER 20:23 → ICU 21:12 → MEDSURG 06-06 15:01
PROVIDERS: Admitting Provider Internal Medicine; Emergency Provider Family Medicine; PCP Nurse Practitioner Family; Visit Provider Student in an Organized Health Care Education/Training Program
DX: J69.0 Pneumonitis due to inhalation of food and vomit (principal); J96.21 Acute and chronic respiratory failure with hypoxia; J96.22 Acute and chronic respiratory failure with hypercapnia; J44.1 Chronic obstructive pulmonary disease with (acute) exacerbation; J44.0 Chronic obstructive pulmonary disease with (acute) lower respiratory infection; E87.29 Other acidosis; E46 Unspecified protein-calorie malnutrition; Z68.1 Body mass index [BMI] 19.9 or less, adult; J18.9 Pneumonia, unspecified organism; F17.210 Nicotine dependence, cigarettes, uncomplicated; I25.10 Atherosclerotic heart disease of native coronary artery without angina pectoris; Z79.82 Long term (current) use of aspirin; Z66 Do not resuscitate; Z51.5 Encounter for palliative care; I95.9 Hypotension, unspecified
CPT/HCPCS: 36415; 36600; 51702; 71045; 80048; 80051; 80053; 80061; 81001; 82330; 82607; 82746; 82805; 83036; 83540; 83550; 83605; 83735; 84100; 84145; 84443; 85025; 87040; 87486; 87581; 87633; 87637; 93005; 94640; 94660; 94664; 94760; 96365; 96367; 96372; 96375; 99291; J1650; J1938; J2060; J2270; J2543; J2919; J3373; J3475; J7030; J7050; J7626; J9999